=== PATIENT | male | born 1950 | race Caucasian/White ===

== ENCOUNTER 2018-11-10 14:44 | Emergency (ER) | payer MEDICARE, SELFPAY ==
[2018-11-10 14:45] VITALS: BP 160/93; PULSE 61; RESP 18; TEMP 35.8; O2SAT 98; BMI 27.3
--- NOTE | 2018-11-10 15:08 | VDLE_ITS ---
Reason For Study: RLE Pain RIGHT LEFT GSV is normal. CFV is compressible, spontaneous, phasic, CFV is compressible, spontaneous, phasic, competent, and demonstrates normal competent and demonstrates normal augmentation. augmentation. FV is compressible, spontaneous, phasic, competent and demonstrates normal augmentation. POP V is compressible, spontaneous, phasic, competent and demonstrates normal augmentation. T/P Trunk is compressible. PTV is compressible. RT PerV is compressible. Procedure Exam performed portable in ED. A preliminary report was called and/or faxed to ED. Interpretation Summary Deep veins of the right lower extremity are patent and compressible segmentally. There is no evidence of right lower extremity deep vein thrombosis. Valvular competence appears intact within the proximal deep venous system on the right . The right greater saphenous vein appears patent and compressible segmentally. Ordering Physician: Geetha Elizalde Performed By: Allyson BUENO, Nadia STARKS and Student
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
--- NOTE | 2018-11-10 15:50 | DCINST.ED_ITS ---
ED Disposition - Plan for ED Patient: Disposition: Home or Assisted Living Chief Complaint: Lower Extremity Injury Instructions: ED Knee Pain UKO, Possible Causes of Low Back or Leg Pain Referrals: [facility] Doctor,Out of [Primary Care Provider] - Lion Portillo MD [STAFF PHYSICIAN] - 1-2 Weeks Additional Instructions: Continue using ibuprofen or tylenol as needed for pain. [facility] to [facility]. You may also follow up with the orthopedic doctor on this paperwork if you continue to have severe knee pain with walking. If you have any worsening of your condition or any new concerning symptoms, please return immediately to the emergency department for another evaluation.
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
== END 2018-11-10 16:08 | disposition home or self-care (01) ==
PROVIDERS: Emergency Provider Emergency Medicine
DX: M79.604 Pain in right leg (principal); M54.5 Low back pain; I25.10 Atherosclerotic heart disease of native coronary artery without angina pectoris; I25.2 Old myocardial infarction; Z72.0 Tobacco use; Z95.5 Presence of coronary angioplasty implant and graft
CPT/HCPCS: 93971; 99282

== ENCOUNTER 2019-05-18 13:41 | Emergency (ER) | payer OTHER, MEDICARE, SELFPAY ==
[2019-05-18 13:42] VITALS: BP 112/70; PULSE 58; RESP 18; TEMP 36.6; O2SAT 98; BMI 25.9
--- NOTE | 2019-05-18 14:02 | ED.DCSUM_ITS ---
- ER Visit Summary Date of Service: 05/18/19 Chief Complaint: Left foot pain History of Present Illness: The patient is a 68 M who presents with left foot pain that began today while at work. Patient states a heavy object fell onto his left foot today at work. Patient states the pain improved somewhat with ice. Patient states the pain is constant and dull. Patient denies any paresthesias or weakness. Patient states his last tetanus was approximately 4 years ago. Patient denies any other injuries. Physical Examination: Vital signs are stable. Patient is afebrile. Patient is in no acute distress. Musculoskeletal exam reveals tenderness over the left great toe, second toe, and third toe. There is some edema and ecchymosis noted. There is no deformity noted. There is good range of motion in all digits. Capillary refill is less than 2 seconds in all digits. Sensation was intact to light touch in all digits. There is no tenderness over the ankle or lower leg. Test Results: X-rays of the left foot were obtained. There is a nondisplaced fracture of the tuft of the distal phalanx of the left first toe. Emergency Department Course and Treatment: Patient was given a postop shoe. Patient was instructed to ice and elevate the left foot. Patient was given restrictions for work. Patient was instructed to follow-up with his primary care physician or [facility] in 5 to 7 days. Patient understood and was agreeable with the plan. All questions were answered. Disposition: Discharge home Impression: Distal phalanx fracture left first toe This note was generated with [employer] dictation software. It may contain incorrect words, spelling, and punctuation that were not noted in review of the chart prior to signing ED Disposition - Plan for ED Patient: Disposition: Home or Assisted Living Diagnosis: Fracture of distal phalanx of great toe Instructions: FRACTURE, Toe [Closed] Referrals: [facility] [Primary Care Provider] - 5-7 Days [facility] [GROUP OF PHYSICIANS] - 5-7 Days
--- NOTE | 2019-05-18 14:05 | RAD_ITS ---
STUDY: X-RAY - LEFT FOOT CLINICAL: Male, 68 years old. Pain following injury of the toes. TECHNIQUE: 3 view(s) of the foot. COMPARISON: None. FINDINGS: There is a plantar calcaneal spur. Normal visualized subtalar, talonavicular, calcaneocuboid, tarsal and tarsometatarsal articulations. Normal metatarsi. Normal metatarsophalangeal joint of the great toe. Normal tibial and fibular sesamoid bones. Normal interphalangeal joint of the great toe. I suspect a nondisplaced fracture of the tuft of the distal phalanx of the great toe. Normal second through fifth metatarsophalangeal joints. Normal interphalangeal joints and phalanges of the lesser toes. Soft tissue swelling. RAD/Foot min 3 Views IMPRESSION: I suspect a nondisplaced fracture of the distal aspect of the distal phalanx of the great toe. Soft tissue swelling. Electronically Signed: Twin Lucero, at 14:30 EDT , Service support ,
--- NOTE | 2019-05-18 14:35 | ED.RN ---
coorprate care present for testing
[2019-05-18 15:48] VITALS: BP 161/74; PULSE 78; RESP 18; O2SAT 98
== END 2019-05-18 15:48 | disposition home or self-care (01) ==
PROVIDERS: Emergency Provider Emergency Medicine
DX: S92.425A Nondisplaced fracture of distal phalanx of left great toe, initial encounter for closed fracture (principal); W20.8XXA Other cause of strike by thrown, projected or falling object, initial encounter; Y93.89 Activity, other specified; Y92.89 Other specified places as the place of occurrence of the external cause; Y99.0 Civilian activity done for income or pay; I25.10 Atherosclerotic heart disease of native coronary artery without angina pectoris; I10 Essential (primary) hypertension; E78.00 Pure hypercholesterolemia, unspecified; F17.210 Nicotine dependence, cigarettes, uncomplicated
CPT/HCPCS: 73630; 99284

== ENCOUNTER 2022-11-19 13:35 | Emergency (ER) | payer MEDICARE, SELFPAY ==
[2022-11-19 13:37] VITALS: BP 112/71; PULSE 65; RESP 14; TEMP 36.6; O2SAT 95; BMI 27.4
[2022-11-19 13:51] VITALS: O2SAT 95
--- NOTE | 2022-11-19 14:02 | EDS_ITS ---
HPI HPI - Fall History of Present Illness Chief Complaint: Fall Narrative Narrative: 72-year-old male here for back pain after fall. Patient states symptoms are constant, severe worse with movement, worse palpation. There are no radiating components. Patient denies any saddle anesthesia, urinary tension, bowel or bladder incontinence, lower extremity weakness, fever or IV drug use, no recent spinal manipulation or surgery, no recent urinary catheterization. PFSH PFSH Home Medications aspirin 325 mg tablet 325 mg PO DAILY@0800 09/30/13 [History Last Taken Unknown] lisinopril 20 mg tablet 20 mg PO DAILY 09/30/13 [History Last Taken Unknown] metoprolol tartrate 25 mg tablet 37.5 mg PO BID 09/30/13 [History Last Taken Unknown] multivitamin with folic acid 400 mcg tablet (Thera) 1 tab PO DAILY 09/30/13 [History Last Taken Unknown] pravastatin 40 mg tablet 80 mg PO DAILY 09/30/13 [History Last Taken Unknown] Allergy/AdvReac Type Severity Reaction Status Date / Time No Known Allergies Allergy Verified 11/19/22 13:37 Social History Smoking Status: Current every day smoker tobacco type: cigarettes ROS ROS ED ROS Narrative Constitutional: Denies fever HEENT: Denies sore throat Neck: Denies neck pain Cardiovascular: Denies chest pain, syncope Respiratory: Denies shortness of breath GI: Denies nausea vomiting or abdominal pain : Denies changes in urinary habits Musculoskeletal: Endorses back pain Neurologic: Denies numbness weakness or loss of sensation Skin denies rash EXAM Physical Exam Narrative Exam Narrative: Nursing triage notes reviewed, Vital signs reviewed Constitutional: please see mdm HENT: MMM, no evidence of head trauma, no cephalhematoma, intraoral lesions, hemotympanum Eyes: Pupils equal round and reactive to light, Extraocular muscles intact Neck: No stridor, no JVD, full neck ROM, no step-offs deformities or TTP over the cervical spine Lungs: Clear to auscultation, No wheezing or rales. No increased work of breathing, no conversational dyspnea, no accessory muscle use, no nasal flaring. No respiratory distress noted Heart: Regular rate and rhythm, No murmurs, No rubs and No gallops, 2+ distal pulses (radial, femoral, posterior tibial) in all extremities Abdomen: Soft, there is no tenderness, rigidity, rebound or guarding, no obvious peritoneal signs, no palpable pulsatile abdominal masses, no auscultated abdominal bruit. No Herb sign, no Kiser Talley sign : No CVAT Back: TTP over right inferior rib margin, crepitus noted. no midline TTP, step- offs or deformities of thoracic or lumbar spine Extremities: No edema Neuro: Intact sensation L1-S1 dermatomal distributions. Intact 5/5 strength in hip flexion (T12-L3). Knee extension (L2-L4). Ankle dorsiflexion (L4-L5). Ankle plantar flexion (S1). Great toe extension (L5). 2+ patellar and Achilles DTRs. Skin: No rash or lesions noted Const Vital Signs: 11/19/22 13:37 11/19/22 13:51 Temperature 98 F Temperature Source Temporal Pulse Rate 65 Respiratory Rate 14 Respiratory Effort Normal Non-Labored Respiratory Depth Normal Respiratory Pattern Normal Blood Pressure 112/71 Blood Pressure Mean 84 Pulse Ox 95 95 Oxygen Delivery Method Room Air Room Air MDM MDM MDM Narrative Medical decision making narrative: Chief Complaint: Back pain after fall External records reviewed: No recent advanced imaging of the axial skeleton I considered: Fractures or dislocation of the spine, musculoskeletal injury of the spine. Factors affecting care: History of hypertension, hyperlipidemia Social determinants of health: Daily tobacco user History obtained from others: None Shared decision making: I will have a discussion with the patient and or visitors regarding risk/benefits of further testing or admission. They will be made aware of of the risk/benefits inherent in this decision they will be given the opportunity to voice understanding. Consults: Radiography Diagnostic Testing: Clinical Impression(s) from Imaging Studies Chest CT 11/19/22 14:32 IMPRESSION: Emphysematous changes and pulmonary scarring. No acute abnormality is seen. Electronically Signed: Twin Lucero MD at 15:15 EST , Discharge Plan Triage Chief Complaint: Fall ED Provider: Dangelo Hendrickson Dx/Rx/DC Orders Prescriptions: No Action aspirin 325 MG tablet 325 mg PO DAILY@0800 pravastatin 40 MG tablet 80 mg PO DAILY lisinopril 20 MG tablet 20 mg PO DAILY metoprolol tartrate 25 MG tablet 37.5 mg PO BID multivitamin with folic acid [Thera] 1 TABLET tablet 1 tab PO DAILY Primary Care Provider: [facility]: [facility] [Primary Care Provider] -
--- NOTE | 2022-11-19 14:32 | CT_ITS ---
STUDY: CT CHEST WITHOUT CONTRAST REASON FOR EXAM: Male, 72 years old. Right lower rib margin tenderness after fall RADIATION DOSAGE (If Supplied By Facility): CTDIvol = ( 15.03 ) mGy, DLP = ( 642.31 ) mGycm TECHNIQUE: Transaxial imaging was performed without the administration of intravenous contrast material. Multiplanar coronal and sagittal images were reformatted. Individualized dose optimization techniques were used for this CT. COMPARISON: No relevant priors. FINDINGS: CHEST Calcified granuloma in the anterior right lower lobe. Emphysematous changes. Subpleural blebs worse in the left lower lobe and right upper lobe. Bibasilar scarring. There is no demonstrated pleural abnormality. There are calcifications of the coronary arteries. Normal mediastinum. Calcified right hilar lymph nodes. Normal unenhanced pulmonary arteries. There is atherosclerotic calcification of the aortic arch with tortuosity and elongation of the aortic arch and descending thoracic aorta. There are multi-level degenerative changes of the thoracic spine. Calcified splenic granulomas. Tiny nonobstructive calculus in the upper pole of the left kidney. CT/Chest without Contrast IMPRESSION: Emphysematous changes and pulmonary scarring. No acute abnormality is seen. Electronically Signed: Twin Lucero MD at 15:15 EST ,
[2022-11-19] MEDS: oxyCODONE 5 MG Tablet PO (14:55)
== END 2022-11-19 15:56 | disposition home or self-care (01) ==
PROVIDERS: Emergency Provider Emergency Medicine; Visit Provider Emergency Medicine
DX: M54.9 Dorsalgia, unspecified (principal); E78.5 Hyperlipidemia, unspecified; F17.210 Nicotine dependence, cigarettes, uncomplicated; I10 Essential (primary) hypertension
CPT/HCPCS: 71250; 99283

== ENCOUNTER 2022-11-21 01:38 | Emergency (ER) | payer MEDICARE, SELFPAY ==
[2022-11-21 01:39] VITALS: BP 150/92; PULSE 74; RESP 18; TEMP 35.7; O2SAT 93; BMI 28.0
--- NOTE | 2022-11-21 01:54 | RAD_ITS ---
STUDY: X-RAY CHEST REASON FOR EXAM: Male, 72 years old. right tenth rib fracture TECHNIQUE: Single AP portable view of the chest. COMPARISON: CT chest November 19, 2022. Chest x-ray September 30, 2013. FINDINGS: No focal infiltrates or effusions. No pneumothorax. Emphysematous changes. Calcified right middle lobe lung nodule. Normal size heart. Normal mediastinum and pricila. Normal visualized pulmonary arteries. Normal visualized aortic arch and descending thoracic aorta. Normal visualized thoracic spine. Mildly displaced right 10th posterior rib fracture best appreciated on the recent CT scan. There is no demonstrated abnormality of the visualized soft tissue structures of the upper abdomen. RAD/Chest 1 View (Portable) IMPRESSION: No acute cardiopulmonary disease. Emphysematous changes. Old granulomatous disease. Right 10th posterior rib fracture visualized on the recent CT scan. Electronically Signed: Jostin Ramirez MD at 2:22 EST Reading Location ID and State: [id number] / , Service support ,
--- NOTE | 2022-11-21 01:55 | ED.VIS.BACK ---
HPI History of Present Illness Chief Complaint: Back Detail of Chief Complaint: Right posterior cheerier rib pain after a fall on the ice on Saturday. Informant: patient Onset/Context/Timing Onset: Days Context: Sudden Onset Injury: direct trauma and fall Timing: Continuous Quality: Sharp Location: Thoracic Current Severity: Moderate Maximum Severity: Moderate Worsened by: improves with Movement and Bending Relieved by: Remaining Still Narrative Narrative: 72-year-old male history of hypertension. Was seen on Saturday after he slipped and fell on the ice when he fell he hit his right posterior lower rib cage against a stair. Had a CAT scan done at that time it was initially read as chronic changes and negative. It was then over read and he has /10 posterior rib fracture. He came in tonight because he is having pain. Worse with movement. He thought he was having back spasms. When he initially fell he denies any head injury. He is on no blood thinners. Prior similar symptoms: No Recent Illness/Hospitalization: No [facility] Medical History Hypertension Myocardial infarct Home Medications aspirin 325 mg tablet 325 mg PO DAILY@0800 09/30/13 [History Last Taken Unknown] lisinopril 20 mg tablet 20 mg PO DAILY 09/30/13 [History Last Taken Unknown] metoprolol tartrate 25 mg tablet 37.5 mg PO BID 09/30/13 [History Last Taken Unknown] multivitamin with folic acid 400 mcg tablet (Thera) 1 tab PO DAILY 09/30/13 [History Last Taken Unknown] pravastatin 40 mg tablet 80 mg PO DAILY 09/30/13 [History Last Taken Unknown] Allergy/AdvReac Type Severity Reaction Status Date / Time No Known Allergies Allergy Verified 11/19/22 13:37 Surgical History History of coronary artery stent placement Social History Smoking Status: Current every day smoker tobacco type: cigarettes ROS ROS ED ROS Narrative Denies recent illness. Review of Systems ROS Unobtainable: Denies due to encephalopathy Constitutional Constitutional ED: Denies chills or fever(s) Eyes Eyes: Denies blurry vision ENT ENT ED: Denies ear pain Cardiovascular Cardiovascular: Denies chest pain Respiratory/Chest Respiratory/Chest: Denies dyspnea Gastrointestinal Gastrointestinal: Denies abdominal pain Genitourinary Genitourinary ED: Denies dysuria Musculoskeletal Musculoskeletal: Reports back pain; Denies arthralgias Integumentary Denies abscess or Abrasions Neurologic Neurologic: Denies headache(s) Psychiatric Psychiatric: Denies anxiety Endocrine Endocrinology: Denies cold intolerance Hematologic/Lymphatic Hematologic/Lymphatic: Denies easy bleeding or easy bruising Allergic/Immunologic Allergic/Immunologic ED: Denies mouth swelling or tongue swelling EXAM Physical Exam Narrative Exam Narrative: 9-year-old male vital signs stable afebrile. Pulse ox 93% on room air no signs hypoxia. Brought in by squad. No distress. Worse right posterior rib cage pain with movement. H EENT exam unremarkable atraumatic. Pupils round react light. C-spine and trachea nontender. Thoracic lumbar spine nontender. Right posterior lower rib cage tenderness. No subcu air, crepitance or bruising. Spines nontender. Lungs clear. Heart regular rhythm no murmur. Anterior chest wall nontender. Abdomen soft nontender. No signs of trauma. Pelvic girdle intact. Moving all 4 extremities. Neurologically is awake and alert with no focal motor deficits. Const Vital Signs: 11/21/22 01:39 Temperature 96.2 F L Temperature Source Temporal Pulse Rate 74 Respiratory Rate 18 Blood Pressure 150/92 H Blood Pressure Mean 111 Pulse Ox 93 Oxygen Delivery Method Room Air Positive well nourished and well developed; Negative for obese, cachectic, contractures or unkempt General Appearance ED: well developed and NAD; Negative for unkempt, cachectic, contractures or pallor Nutritional Appearance: Negative for cachectic or obese HEENT Reports moist mucous membranes; Denies dry mucous membranes Negative for trauma or tenderness Mouth ED: No dry mucous membranes Mouth: No dry mucous membranes Eyes PERRL and EOMs intact bilaterally General Eye ED: Negative for pale conjunctiva or scleral icterus Neck no lymphadenopathy, supple and no JVD General: Negative for tenderness Thyroid: Negative for other Resp normal respiratory effort and clear to auscultation bilaterally Effort and Inspection: pain with movement Auscultation: Negative for rales, rhonchi, wheezes or diminished lung sounds Cardio regular rate, regular rhythm, S1 normal heart sound, S2 normal heart sound and no murmurs Rhythm: Negative for abnormal rhythm GI normal to inspection, nondistended, normoactive bowel sounds, soft to palpation, non-tender, non-distended and no masses Inspection: Negative for abdominal distention Auscultation: Negative for hyperactive bowel sounds Palpation: Negative for tender or guarding Back/Spine normal to inspection and no thoracic nor lumbar tenderness Back/Spine Narrative: Tenderness right lower rib cage consistent with 1/10 rib fracture seen on prior CAT scan. No spine tenderness. Extremity normal to inspection and no clubbing, cyanosis or edema General Extremety ED: Negative for edema or tenderness General Extremity: Negative for edema Neuro oriented x3 Sensorium / Orientation: alert; Negative for confused, lethargic or stuporous Motor Exam: strength 5/5 throughout Psych mental status grossly normal Appearance: Negative for unkempt Attitude: No agitated Mood & Affect: Negative for depressed, sad or tearful Skin no rashes or lesions noted and no wounds General Skin Exam: Negative for jaundice or pallor Lesions: No lesion noted Rashes: No rashes noted Trauma: Negative for abrasion or puncture Wounds: Negative for wounds noted MDM MDM MDM Narrative Medical decision making narrative: 72-year-old male fell on Saturday. Was seen in the emergency department and CAT scan at that time. Has since been over read he has a right 10th posterior rib fracture. He will be given [place] for pain. I am obtaining a chest x-ray to rule out an effusion or pneumothorax clinically I do not think he has either. I did discuss with him his CAT scan results and how it was over read. Repeat exam patient is doing well at 3:30 AM. The [place] significantly helped his pain. He will be discharged home. Pillow to help brace his rib fracture. Ice. [place] for pain. 20 no refill. He was instructed not to drive if he is taking the [place]. Do not drink alcohol while using it. Radiography Diagnostic Testing: Clinical Impression(s) from Imaging Studies Chest X-Ray 11/21/22 01:54 IMPRESSION: No acute cardiopulmonary disease. Emphysematous changes. Old granulomatous disease. Right 10th posterior rib fracture visualized on the recent CT scan. Electronically Signed: Jostin Ramirez MD at 2:22 EST Reading Location ID and State: [id number] / , Service support , Chest x-ray, portable, single view, interpreted by myself and the radiologist shows no acute processes. No pneumothorax. No pleural effusion. I do not specifically see the fractured rib that they saw on the CAT scan. The radiologist also read the film and we agree. Discharge Plan Triage Chief Complaint: Back ED Provider: Keagan Rodriguez Dx/Rx/DC Orders Clinical Impression: Right rib fracture, Fall Instructions: ED Rib Fracture Prescriptions: No Action aspirin 325 MG tablet 325 mg PO DAILY@0800 pravastatin 40 MG tablet 80 mg PO DAILY lisinopril 20 MG tablet 20 mg PO DAILY metoprolol tartrate 25 MG tablet 37.5 mg PO BID multivitamin with folic acid [Thera] 1 TABLET tablet 1 tab PO DAILY [facility] Provider[facility] [Primary [facility] Provider] - As Needed Activity Restrictions/Additional Instructions: You have a fracture right 10th rib in the back. Ice to the area. Pillow to brace the area. It will take this 4 to 8 weeks to heal. The pain should improve over that time. [place] 1 pill every 4-6 hours for pain as needed. No drinking. No driving while using it. Make sure you are drinking plenty of fluids and fiber so you do not get constipated. Motrin also for pain and inflammation. Follow-up with your doctor as needed. Disposition Disposition: Home, Self Care
[2022-11-21] MEDS: HYDROcodone Bitartrate/Apap 5/325 Tablet PO (02:07)
[2022-11-21 03:39] VITALS: PULSE 86; RESP 18; O2SAT 100
== END 2022-11-21 03:40 | disposition home or self-care (01) ==
PROVIDERS: Emergency Provider Emergency Medicine; Visit Provider Emergency Medicine
DX: S22.31XA Fracture of one rib, right side, initial encounter for closed fracture (principal); I10 Essential (primary) hypertension; F17.210 Nicotine dependence, cigarettes, uncomplicated; W10.9XXA Fall (on) (from) unspecified stairs and steps, initial encounter
CPT/HCPCS: 71045; 99284

== ENCOUNTER 2024-02-08 13:14 | Emergency (ER) | payer MEDICARE, SELFPAY ==
[2024-02-08 13:16] VITALS: BP 148/85; PULSE 70; RESP 18; TEMP 35.9; O2SAT 97; BMI 26.2
--- NOTE | 2024-02-08 13:37 | CT_ITS ---
STUDY: CT Abdomen And Pelvis W/O Contrast Injection 02/08/2024 2:16 PM REASON FOR EXAM: Male, 73 years old. Abdominal pain left flank Individualized dose optimization techniques were used for this CT. COMPARISON: None. TECHNIQUE: CT Abdomen And Pelvis W/O Contrast Injection FINDINGS: There are atherosclerotic calcifications of visualized coronary arteries. The visualized portions of the heart are within normal limits. Healing right rib fractures. Normal liver. Normal gallbladder and extrahepatic biliary system. There are multiple benign calcified granulomata of the spleen. Normal pancreas. Normal bilateral adrenal glands. There are hypodensities in the right kidney. These are consistent for cysts. No follow up required. Non obstructive 2 mm left renal parenchymal stones. There are hypodensities in the left kidney. These are consistent for cysts. No follow up required. Normal visualized stomach. Normal small intestine. There are multiple colonic diverticula consistent with diverticulosis. The appendix is visualized and appears normal. There are calcifications of the abdominal aorta. This is consistent for atherosclerotic disease. There is NO abdominal aortic aneurysm. Vascular workup can be obtained based on clinical correlation. Normal inferior vena cava. Subcentimeter mesenteric lymph nodes. Urinary bladder wall has wall thickening. This can be related to a partially contractile state. However, a cystitis is not excluded. Urinalysis should be performed in an effort to exclude cystitis. There are prostatic calcifications. There is an umbilical hernia containing fat. There are diffuse degenerative changes of the visualized lumbar spine. There is bilateral neural foraminal stenosis at L4-5 and L5-S1. CT/Abdomen/Pelvis without Cont IMPRESSION: (NOT LISTED IN ORDER OF SIGNIFICANCE) Cystitis. There are multiple diverticuli of the colon. There is diverticulosis but no radiographic signs for diverticulitis. Other findings as above. Electronically Signed: Jacky Leach MD at 14:21 EDT ,
--- NOTE | 2024-02-08 13:38 | EX.ED.DYSGE1 ---
HPI <KINGA Ruiz - Last Filed: 02/08/24 15:53> History of Present Illness Chief Complaint: Flank Pain Narrative Narrative: 73-year-old male with past medical history of HTN, HLD states last night he had aching pain in his left flank after using a riding lawnmower. He thought it was a muscle ache. Today the pain became more intense and seems to wax and wane. He has noted urinary frequency but no dysuria or hematuria. He has no fever, chills, nausea or vomiting. Pain seems worse with movement. He took Aleve prior to arrival. He has no history of kidney stones. He has had a remote right inguinal hernia repair. PFSH <KINGA Ruiz - Last Filed: 02/08/24 15:53> [facility] Medical History Hypertension Myocardial infarct Home Medications aspirin 325 mg tablet 325 mg PO DAILY@0800 09/30/13 [History Last Taken Unknown] lisinopril 20 mg tablet 20 mg PO DAILY 09/30/13 [History Last Taken Unknown] metoprolol tartrate 25 mg tablet 37.5 mg PO BID 09/30/13 [History Last Taken Unknown] multivitamin with folic acid 400 mcg tablet (Thera) 1 tab PO DAILY 09/30/13 [History Last Taken Unknown] pravastatin 40 mg tablet 80 mg PO DAILY 09/30/13 [History Last Taken Unknown] hydrocodone-acetaminophen 5-325mg 5mg-325mg 1 tab PO Q4H PRN pain 6 days #20 tabs 11/21/22 [Rx Last Taken Unknown] Allergy/AdvReac Type Severity Reaction Status Date / Time No Known Allergies Allergy Verified 02/08/24 13:15 Surgical History History of coronary artery stent placement Social History Smoking Status: Current every day smoker tobacco type: cigarettes ROS <KINGA Ruiz - Last Filed: 02/08/24 15:53> ROS ED ROS Narrative Constitutional: Negative for fever, chills, malaise. CVS: Negative for chest pain. Respiratory: Negative for shortness of breath. GI: Negative for abdominal pain, nausea, vomiting, diarrhea, constipation, melena, hematochezia. : Positive for frequency. Negative for dysuria, hematuria. EXAM <KINGA Ruiz - Last Filed: 02/08/24 15:53> Physical Exam Narrative Exam Narrative: CONST: Patient sitting in no acute distress. EYES: Normal inspection. NECK: Normal inspection. RESP: No respiratory distress, CTAB. CVS: Regular rate and rhythm, no murmur, no gallop. ABD: Soft with mild tenderness in left lower quadrant, no guarding or rebound, nondistended, no hepatosplenomegaly. Back: Normal inspection, left CVA tenderness. SKIN: Color normal, no rash, warm, dry, intact. EXTREMITIES: Normal appearance, no pedal edema. NEURO: Alert and answering questions appropriately. PSYCH: Normal affect. Const Vital Signs: 02/08/24 13:16 02/08/24 15:00 02/08/24 15:48 Temperature 96.7 F L 97.8 F Temperature Source Temporal Pulse Rate 70 62 61 Respiratory Rate 18 16 16 Blood Pressure 148/85 H 157/72 H 152/74 H Blood Pressure Mean 106 100 100 Pulse Ox 97 97 97 Oxygen Delivery Method Room Air Room Air <Dr. Ronald Stoddard, DO - Last Filed: 02/08/24 13:51> Physical Exam Const Vital Signs: 02/08/24 13:16 02/08/24 15:00 02/08/24 15:48 Temperature 96.7 F L 97.8 F Temperature Source Temporal Pulse Rate 70 62 61 Respiratory Rate 18 16 16 Blood Pressure 148/85 H 157/72 H 152/74 H Blood Pressure Mean 106 100 100 Pulse Ox 97 97 97 Oxygen Delivery Method Room Air Room Air MDM <KINGA Ruiz - Last Filed: 02/08/24 15:53> [facility] MDM Narrative Medical decision making narrative: Patient has left flank pain x 2 days. He appears well and nontoxic. Afebrile and hemodynamically stable. He has mild left lower quadrant abdominal tenderness and left CVA tenderness. CBC and BMP are WNL. Urinalysis has no acute infection. CT scan shows no acute findings. He etiology of his pain is unclear. He feels somewhat better after Toradol and Lidoderm patch and I discussed a regimen of [id number] analgesia. If symptoms evolve or worsen he should be reassessed. He was comfortable with this plan and discharged in stable condition. Lab Data Attestation: I reviewed the patient's lab results. Labs: Laboratory Results - last 24 hr 02/08/24 02/08/24 13:30 14:30 WBC 6.7 RBC 5.00 Hgb 15.9 Hct 48.7 MCV 97.4 H MCH 31.8 MCHC 32.6 RDW Std Deviation 49.9 H RDW Coeff of [place] 13.9 Plt Count 185 MPV 11.0 Immature Gran % (Auto) 0.400 Neut % (Auto) 62.0 Lymph % (Auto) 24.3 [place] % (Auto) 10.6 H Eos % (Auto) 2.1 Baso % (Auto) 0.6 Absolute Neuts (auto) 4.2 Absolute Lymphs (auto) 1.63 Nucleated RBC % 0 Sodium 139 Potassium 4.4 Chloride 105 Carbon Dioxide 31.0 Anion Gap 3 L BUN 15 Creatinine 1.24 Estim Creat Clear Calc 54.64 Est GFR (MDRD) Af Amer 74 Est GFR (MDRD) Non-Af 61 BUN/Creatinine Ratio 12.1 Glucose 89 Calcium 8.8 Urine Color Yellow Urine Clarity Clear Urine pH 7.0 Ur Specific [place] 1.010 Urine Protein 15 H Urine Glucose (UA) Normal Urine Ketones Negative Urine Occult Blood 10 H Urine Nitrite Negative Urine Bilirubin Negative Urine Urobilinogen 1 H Ur Leukocyte Esterase 25 H Urine RBC 0 SEEN Urine WBC 5-10 SEEN Ur Squamous Epith Cells 0 SEEN Urine Bacteria 0 SEEN Urine Mucus 0 SEEN Radiography Diagnostic Testing: Clinical Impression(s) from Imaging Studies Abdomen/Pelvis CT 02/08/24 13:37 IMPRESSION: (NOT LISTED IN ORDER OF SIGNIFICANCE) Cystitis. There are multiple diverticuli of the colon. There is diverticulosis but no radiographic signs for diverticulitis. Other findings as above. Electronically Signed: Jacky Leach MD at 14:21 EDT , <Dr. Ronald Stoddard, DO - Last Filed: 02/08/24 13:51> [facility] Lab Data Labs: Laboratory Results - last 24 hr 02/08/24 02/08/24 13:30 14:30 WBC 6.7 RBC 5.00 Hgb 15.9 Hct 48.7 MCV 97.4 H MCH 31.8 MCHC 32.6 RDW Std Deviation 49.9 H RDW Coeff of [place] 13.9 Plt Count 185 MPV 11.0 Immature Gran % (Auto) 0.400 Neut % (Auto) 62.0 Lymph % (Auto) 24.3 [place] % (Auto) 10.6 H Eos % (Auto) 2.1 Baso % (Auto) 0.6 Absolute Neuts (auto) 4.2 Absolute Lymphs (auto) 1.63 Nucleated RBC % 0 Sodium 139 Potassium 4.4 Chloride 105 Carbon Dioxide 31.0 Anion Gap 3 L BUN 15 Creatinine 1.24 Estim Creat Clear Calc 54.64 Est GFR (MDRD) Af Amer 74 Est GFR (MDRD) Non-Af 61 BUN/Creatinine Ratio 12.1 Glucose 89 Calcium 8.8 Urine Color Yellow Urine Clarity Clear Urine pH 7.0 Ur Specific [place] 1.010 Urine Protein 15 H Urine Glucose (UA) Normal Urine Ketones Negative Urine Occult Blood 10 H Urine Nitrite Negative Urine Bilirubin Negative Urine Urobilinogen 1 H Ur Leukocyte Esterase 25 H Urine RBC 0 SEEN Urine WBC 5-10 SEEN Ur Squamous Epith Cells 0 SEEN Urine Bacteria 0 SEEN Urine Mucus 0 SEEN Radiography Diagnostic Testing: Clinical Impression(s) from Imaging Studies Abdomen/Pelvis CT 02/08/24 13:37 IMPRESSION: (NOT LISTED IN ORDER OF SIGNIFICANCE) Cystitis. There are multiple diverticuli of the colon. There is diverticulosis but no radiographic signs for diverticulitis. Other findings as above. Electronically Signed: Jacky Leach MD at 14:21 EDT Reading Location ID and State: [facility] / [place] , Service support , Treatment and Re-Evaluation :: I have personally performed a face to face assessment of the patient and have reviewed the ELOY Note. I performed a substantive portion of the visit including all aspects of the following. My kam findings include: History: Patient presents with left flank pain that began yesterday. Patient states it became worse today. Patient describes it as sharp at times and throbbing at times. Patient states it also feels like it is burning at times. Patient states it is over the left flank area and radiates into the left lower abdomen. Patient denies any fevers or chills. Patient denies any dysuria or hematuria. Patient denies any nausea or vomiting. Exam: Vital signs are stable. Patient is afebrile. Patient is in no acute distress. Oral mucosa is pink and moist. Neck is supple. Trachea is midline. There is no JVD. Heart was regular rate and rhythm. Lungs are clear and equal bilaterally. Abdomen is soft. Bowel sounds are normal. There is some mild left lower quadrant tenderness. There is no rebound or guarding noted. There is mild left CVA tenderness. Cranial nerves II through XII are intact. There are no focal motor or sensory deficits noted. Medical Decision Making: Differential diagnosis includes left ureteral calculus, pyelonephritis, diverticulitis, and gastroenteritis. CBC will be obtained to assess for leukocytosis and anemia. Basic metabolic profile will be obtained to assess for electrolyte abnormality and renal function. Urinalysis will be obtained to assess for urinary tract infection and hematuria. CT scan of the abdomen pelvis will be obtained to assess for ureteral calculus and diverticulitis. Patient was given IV fluids and Toradol. Discharge Plan Triage Chief Complaint: Flank Pain ED Midlevel Provider: Geetha Escalona ED Provider: Ronald Stoddard Dx/Rx/DC Orders Clinical Impression: Left flank pain Instructions: ED Flank Pain, Uncertain Cause Prescriptions: No Action aspirin 325 MG tablet 325 mg PO DAILY@0800 pravastatin 40 MG tablet 80 mg PO DAILY lisinopril 20 MG tablet 20 mg PO DAILY metoprolol tartrate 25 MG tablet 37.5 mg PO BID multivitamin with folic acid [Thera] 1 TABLET tablet 1 tab PO DAILY hydrocodone-acetaminophen 5-325 mg tablet 1 tab PO Q4H PRN (Reason: pain) 6 Days Qty: 20 0RF [facility] [Primary Care Provider] - Activity Restrictions/Additional Instructions: Today your tests and CAT scan look normal with no clear cause found of your pain. I recommend alternating Tylenol and Motrin and following up with your primary care doctor. Return if symptoms worsen or significantly change. Disposition Disposition: Home, Self Care
[2024-02-08] MEDS: Ketorolac 15 MG/ML Vial IV (13:48)
[2024-02-08] MEDS: 0.9% Normal Saline (1000mL) 1,000 ML 999 ML IV (13:48)
[2024-02-08 14:13] LABS: Absolute Lymphocyte Count 1.63 X10^3/uL (0.83-4.51); Absolute Neutrophil Count 4.2 X10^3/uL (2.0-7.7); Basophil# 0.04 X10^3/uL; Basophil% 0.6 % (0-1); Eosinophil# 0.14 X10^3/uL; Eosinophils% 2.1 % (0-5); Hematocrit 48.7 % (40-54); Hemoglobin 15.9 g/dL (13.0-16.5); Lymphocyte # 1.63 X10^3/ul (0.83-4.51); Lymphocyte % 24.3 % (19-41); Mean Corp Hgb Conc 32.6 g/dL (32-36); Mean Corpuscular Hgb 31.8 pg (27.0-32.0); Mean Corpuscular Volume 97.4 fL (80-94); Monocyte# 0.71 X10^3/uL; Monocyte% 10.6 % (0-10); NRBC Flagged by Analyzer 0 % (0-5); Neutrophil # 4.16 X10^3/uL (2.7-7.7); Platelet Count 185 K/mm3 (150-450); RBC Distribution Width CV 13.9 % (11.6-14.6); RBC Distribution Width SD 49.9 fl (35.1-43.9); White Blood Count 6.7 K/mm3 (4.4-11.0)
[2024-02-08 14:21] LABS: Anion Gap 3 (5-15); BUN 15 mg/dL (7-18); BUN/Creat Ratio 12.1 RATIO (10-20); Calcium,Total 8.8 mg/dL (8.5-10.1); Chloride 105 mmol/L (98-107); Creatinine, Serum 1.24 mg/dL (0.70-1.30); EST Glomerular Filtration Rate 61 mL/min (>60); Est Glom Filt Rate - Afr Amer 74 mL/min (>60); Estimated Creatinine Clearance 54.64 ml/min; Glucose 89 mg/dL (74-106); Potassium 4.4 mmol/L (3.5-5.1); Sodium Level 139 mmol/L (136-145)
[2024-02-08 14:36] LABS: Bacteria 0 SEEN /hpf (None Seen); Mucous, Urine 0 SEEN /hpf (<or=2+); Red Blood Cells-Urine 0 SEEN /hpf (0-5); Squamous Epithelial Cells - UA 0 SEEN /hpf (0-5)
[2024-02-08 15:00] VITALS: BP 157/72; PULSE 62; RESP 16; O2SAT 97
[2024-02-08 15:00] LABS: Color, Urine Yellow (Yellow); Glucose, Dipstick Normal (Normal); Ketone-Dipstick Negative (Negative); Leukocyte Esterase-Dipstick 25 /ul (Negative); Nitrite-Dipstick Negative (Negative); Occult Blood-Urine 10 /ul (Negative); Protein-Dipstick 15 mg/dl (Negative); Urine Bilirubin Dipstick Negative (Negative); Urine Clarity Clear (Clear); Urine Urobilinogen 1 mg/dl (Normal)
[2024-02-08 15:35] LABS: White Blood Cells 5-10 SEEN /hpf (0-5)
[2024-02-08 15:48] VITALS: BP 152/74; PULSE 61; RESP 16; TEMP 36.6; O2SAT 97
[2024-02-08] MEDS: Lidocaine 5% Patch 1 PATCH TOPICAL (16:00)
== END 2024-02-08 16:57 | disposition home or self-care (01) ==
PROVIDERS: Physician Assistant; Emergency Provider Emergency Medicine; Visit Provider Emergency Medicine
DX: R10.814 Left lower quadrant abdominal tenderness (principal); E78.5 Hyperlipidemia, unspecified; I10 Essential (primary) hypertension; F17.210 Nicotine dependence, cigarettes, uncomplicated; Z79.899 Other long term (current) drug therapy; I25.2 Old myocardial infarction; Z79.82 Long term (current) use of aspirin; Z95.5 Presence of coronary angioplasty implant and graft; X58.XXXA Exposure to other specified factors, initial encounter; Y93.89 Activity, other specified
CPT/HCPCS: 74176; 80048; 81001; 85025; 96361; 96374; 99283; J7030

== ENCOUNTER 2025-05-03 20:21 | Emergency (ER) | payer MEDICARE, SELFPAY ==
[2025-05-03] VITALS (7 sets, daily range): BP systolic 115–162; BP diastolic 83–94; PULSE 64–71; RESP 17–24; TEMP 37; O2SAT 93–100; BMI 27.4
--- NOTE | 2025-05-03 20:47 | EKG12_ITS ---
Test Reason : CP Blood Pressure : */* mmHG Vent. Rate : 66 BPM Atrial Rate : 66 BPM P-R Int : 132 ms QRS Dur : 130 ms QT Int : 430 ms P-R-T Axes : 63 95 40 degrees QTcB Int : 450 ms Sinus rhythm with Premature supraventricular complexes Right bundle branch block Abnormal ECG Confirmed by Lobito Delgadillo ([id number]), web content editor ALEKSANDRA GALLAGHER ([id number]) on 05/05/2025 11:21:35 AM Referred By: DARVIN Confirmed By: Lobito Delgadillo
[2025-05-03 21:01] LABS: Hematocrit 44.4 % (40-54); Hemoglobin 15.1 g/dL (13.0-16.5); Immature Granulocytes Count 0.030 X10^3/uL (0.0-0.0); Mean Corp Hgb Conc 34.0 g/dL (32-36); Mean Corpuscular Volume 96.1 fL (80-94); Mean Platelet Vol. 10.7 fl (6.2-12.0); NRBC Flagged by Analyzer 0 % (0-5); Platelet Count 194 K/mm3 (150-450); RBC Distribution Width CV 14.1 % (11.6-14.6); RBC Distribution Width SD 49.6 fl (35.1-43.9); Red Blood Count 4.62 M/mm3 (4.6-6.2); White Blood Count 8.6 K/mm3 (4.4-11.0)
--- NOTE | 2025-05-03 21:10 | RAD_ITS ---
PROCEDURE: CHEST 1 VIEW (PORTABLE) 05/03/2025 REASON FOR EXAM: CHEST PAIN TECHNIQUE: Frontal view of the chest. COMPARISON: 11/21/2022 FINDINGS: Scattered calcified granulomas. Diffuse reticular opacities may reflect atypical pneumonia, mild pulmonary edema, and/or underlying chronic lung disease. Right lower lobe opacity is not excluded. No pleural effusion or pneumothorax. Cardiac silhouette is unchanged. Calcified aortic arch. RAD/Chest 1 View (Portable) IMPRESSION: Diffuse reticular opacities may reflect atypical pneumonia, mild pulmonary vinicius a, and/or underlying chronic lung disease. Right lower lobe opacity is not excluded. Reading Location: [id number]
--- NOTE | 2025-05-03 21:17 | ED.VIS.CHEST ---
HPI History of Present Illness Chief Complaint: Chest Pain Narrative Narrative: 74-year-old male past medical history of hypertension and coronary artery disease had stenting of his coronary arteries in 2003 presents with chest pain and tightness that he experienced approximately 2 hours ago. It was around 7 PM when he had just eaten dinner and was sitting trying to rest. He felt chest tightness for at least an hour. He called the side and around 8:20 PM, who brought him to the emergency department. He states he may have been slightly nauseated but no vomiting, no shortness of breath but he was mildly diaphoretic. He continues to smoke cigarettes, approximately a pack a day. He denies any exacerbating or alleviating factors. No leg swelling. He is currently pain-free. [facility] Medical History Myocardial infarct Hypertension Home Medications ?Medication ?Instructions ?Recorded ?Last Taken ?Type aspirin 325 mg tablet 325 mg PO DAILY@0800 09/30/13 Unknown History lisinopril 20 mg tablet 20 mg PO DAILY 09/30/13 Unknown History metoprolol tartrate 25 mg tablet 37.5 mg PO BID 09/30/13 Unknown History multivitamin with folic acid 400 1 tab PO DAILY 09/30/13 Unknown History mcg tablet (Thera) pravastatin 40 mg tablet 80 mg PO DAILY 09/30/13 Unknown History azithromycin 250 mg tablet See Rx Instructions PO .COMPLEX #6 05/03/25 Unknown Rx tabs Allergy/AdvReac Type Severity Reaction Status Date / Time No Known Allergies Allergy Verified 05/03/25 20:23 Surgical History History of coronary artery stent placement Social History Smoking Status: Current every day smoker tobacco type: cigarettes ROS ROS ED ROS Narrative Review of systems positive for chest tightness and diaphoresis. Perhaps slight nausea but no vomiting, no shortness of breath. No fevers or chills. Chronic cough in the mornings. No leg swelling. No exacerbating or alleviating factors. Currently pain-free. EXAM Physical Exam Narrative Exam Narrative: Afebrile. Vital signs noted. Nontoxic-appearing. Cardiovascular examination reveals regular rate and rhythm. Lungs are clear to auscultation bilaterally with rare expiratory wheeze, moving a good amount of air. Abdomen soft and nontender with positive bowel sounds, no guarding or rebound. Neurological examination nonfocal, nonlateralizing. No pedal edema bilaterally. Const Vital Signs: 05/03/25 20:21 05/03/25 20:22 05/03/25 20:47 Temperature 98.6 F Temperature Source Oral Pulse Rate 70 Respiratory Rate 18 Respiratory Effort Short of Breath Respiratory Pattern Blood Pressure 115/83 H Blood Pressure Mean 93 Pulse Ox 100 93 Oxygen Delivery Method Room Air 05/03/25 21:21 05/03/25 22:00 05/03/25 23:00 Temperature Temperature Source Pulse Rate 71 66 64 Respiratory Rate 22 H 24 H 17 Respiratory Effort Respiratory Pattern Blood Pressure 162/88 H 154/90 H 162/94 H Blood Pressure Mean 112 111 116 Pulse Ox 93 93 95 Oxygen Delivery Method Room Air Room Air Room Air 05/03/25 23:02 Temperature Temperature Source Pulse Rate 64 Respiratory Rate 20 H Respiratory Effort Respiratory Pattern Normal Blood Pressure Blood Pressure Mean Pulse Ox Oxygen Delivery Method MDM MDM MDM Narrative Medical decision making narrative: The differential diagnosis includes but not limited to ACS versus COPD exacerbation versus pneumonia versus pneumothorax. I have low suspicion for pulmonary embolism because history and physical does not support this. EKG obtained interpreted by myself independently as normal sinus rhythm at 66 bpm with premature supraventricular complexes. There is a right bundle branch block present. No prior EKG with which to compare. I reviewed his laboratory work and he has normal white count of 8.6 with hemoglobin normal at 15.1, hematocrit 44.4, platelet count 194. BMP remarkable for creatinine of 1.32. Glucose 111. Initial high-sensitivity troponin 12. Chest x-ray interpreted by myself shows diffuse reticular opacities which could be atypical pneumonia versus interstitial edema. I added a BNP and its normal at 272. I do think he is in heart failure. I reviewed the radiology report which confirms my independent interpretation. I do feel in treating an atypical pneumonia that he should be given a DuoNeb aerosolized treatment. He states he has multiple inhalers at home. Smoking cessation was discussed. I will write him a prescription for azithromycin to take over the next 5 days. As long as his repeat troponin shows a acceptable delta troponin I feel he can be discharged to follow-up and that his chest tightness may have been more of a COPD type exacerbation. Repeat troponin returns at 14 for an acceptable delta troponin of 2. At this point in time, he remains pain-free. He will follow-up with his primary care provider at the [place]. Return instructions to the emergency department were reviewed. Disposition is discharged home in stable condition. History & Record Review Discussion w/independent historian: Patient Additional record(s) reviewed:: Prior ED visit and Prior labs Lab Data Attestation: I reviewed the patient's lab results. Labs: Laboratory Results - last 24 hr 05/03/25 05/03/25 20:38 22:55 WBC 8.6 RBC 4.62 Hgb 15.1 Hct 44.4 MCV 96.1 H MCH 32.7 H MCHC 34.0 RDW Std Deviation 49.6 H RDW Coeff of [place] 14.1 Plt Count 194 MPV 10.7 Immature Gran % (Auto) 0.400 Neut % (Auto) 52.1 Lymph % (Auto) 32.9 [place] % (Auto) 11.4 H Eos % (Auto) 2.7 Baso % (Auto) 0.5 Absolute Neuts (auto) 4.5 Absolute Lymphs (auto) 2.82 Nucleated RBC % 0 Sodium 140 Potassium 4.1 Chloride 104 Carbon Dioxide 24.2 Anion Gap 12 BUN 19 Creatinine 1.32 H Estim Creat Clear Calc 50.59 Est GFR (MDRD) Non-Af 57 L BUN/Creatinine Ratio 14.1 Glucose 111 H Calcium 9.1 Troponin T High Sens 12 Troponin T Hi Sens 2 Hr 14 NT pro BNP II 272 Radiography Diagnostic Testing: Clinical Impression(s) from Imaging Studies Chest X-Ray 05/03/25 21:10 IMPRESSION: Diffuse reticular opacities may reflect atypical pneumonia, mild pulmonary edema, and/or underlying chronic lung disease. Right lower lobe opacity is not excluded. Reading Location: [id number] Discharge Plan Triage Chief Complaint: Chest Pain ED Provider: Gigi Leal Dx/Rx/DC Orders Clinical Impression: Chest tightness, Atypical pneumonia, Smoker Instructions: Planning to Quit Smoking, ED Chest Pain, Uncertain Cause, ED Pneumonia (Adult) Prescriptions: New azithromycin 250 mg tablet See Rx Instructions .ROUTE .COMPLEX Qty: 6 0RF Rx Instructions: For 250 mg dose pack: take 500 mg today (day 1), then 250 mg for 4 days (days 2-5) No Action aspirin 325 MG tablet 325 mg PO DAILY@0800 pravastatin 40 MG tablet 80 mg PO DAILY lisinopril 20 MG tablet 20 mg PO DAILY metoprolol tartrate 25 MG tablet 37.5 mg PO BID multivitamin with folic acid [Thera] 1 TABLET tablet 1 tab PO DAILY [facility] [facility]errals[facility] [Primary Care Provider] - 3-5 Days if not improving Activity Restrictions/Additional Instructions: Stop smoking. Use an albuterol inhaler or nebulizer treatment every 4-6 hours as needed for shortness of breath. Return with increased chest tightness, new or worsening symptoms. Antibiotics as directed. [facility] 5 days if not improving. Print Language: Bruneian Disposition Disposition: Home, Self Care
[2025-05-03 21:39] LABS: Anion Gap 12 (5-15); BUN 19 mg/dL (4-19); BUN/Creat Ratio 14.1 RATIO (10-20); Calcium,Total 9.1 mg/dL (7.6-11.0); Carbon Dioxide 24.2 mmol/L (21.0-32.0); Chloride 104 mmol/L (98-108); Estimated Creatinine Clearance 50.59 ml/min (50-250); Glucose 111 mg/dL (70-99); Potassium 4.1 mmol/L (3.3-5.1); Troponin T High Sensitivity 12 ng/L (<=22)
[2025-05-03 23:02] LABS: Pro- Brain NATRIURETIC PEPTIDE 272 pg/mL (<=900)
[2025-05-03 23:23] LABS: Troponin T High Sens 2 HR 14 ng/L (<=22)
== END 2025-05-03 23:35 | disposition home or self-care (01) ==
PROVIDERS: Emergency Provider Emergency Medicine; Visit Provider Emergency Medicine
DX: R07.89 Other chest pain (principal); J18.9 Pneumonia, unspecified organism; F17.210 Nicotine dependence, cigarettes, uncomplicated; I25.10 Atherosclerotic heart disease of native coronary artery without angina pectoris; I45.10 Unspecified right bundle-branch block; Z95.5 Presence of coronary angioplasty implant and graft; I25.2 Old myocardial infarction; I10 Essential (primary) hypertension; Z79.82 Long term (current) use of aspirin; Z79.899 Other long term (current) drug therapy; R11.0 Nausea; R61 Generalized hyperhidrosis
CPT/HCPCS: 71045; 80048; 83880; 84484; 85025; 93005; 94640; 99284; A4216

== ENCOUNTER 2025-09-14 10:27 | Day surgery (SDC) | payer OTHER, SELFPAY ==
--- NOTE | 2025-09-08 16:41 | PAT.ANE_ITS ---
Pre-Assessment Diagnosis/Proposed Procedure Planned Operative Procedure(s): INSERTION VASCULAR PORT RIGHT POSS LEFT Anesthesia History Anesthesia History - analysis consultant: Anesthesia History - analysis consultant Hx Hospitalization No 09/08/25 13:46 Any Problems With Anesthesia No 09/08/25 13:46 Cholinesterase deficiency No 09/08/25 13:46 You/Your Family Experience No 09/08/25 13:46 fever (hyperthermia) with Relationship Recent Exposure to Contagious Disease Does patient have nerve No 09/08/25 13:46 stimulator Patient instructed to have device shut off --Does patient have Pacemaker or ICD? When Was Last Pacemaker Check QUESTION #4 FULL TEXT: You/Your Family Experience fever (hyperthermia) with Anesthesia Last Oral Intake Last Oral intake: Last Oral Intake NPO since Meds taken in AM with sips of water? Meds patient instructed to take am of surgery PONV PONV - analysis consultant: PONV - analysis consultant Female No 09/08/25 13:46 HX of Motion Sickness No 09/08/25 13:46 HX of N/V After Surgery No 09/08/25 13:46 Non-Smoker Yes 09/08/25 13:46 Duration of Surgery greater No 09/08/25 13:46 than 60 minutes Number of Risk Factors 1 09/08/25 13:46 PONV Score Low Risk 09/08/25 13:46 Height & Weight Height & Weight: Anesthesia: Height & Weight Height 5 ft 9 in 09/07/25 10:12 Respiratory Assessment Respiratory Assessment - analysis consultant: Respiratory Tract Infection Hx - analysis consultant Hx Respiratory Tract Infection No: PNEUMONIA 04/202509/08/25 13:46 STOP Sleep Apnea STOP Sleep Apnea - analysis consultant: STOP Sleep Apnea - analysis consultant Hx Hypertension Yes: CONTROLLED WITH MED 09/08/25 13:46 Hx Sleep Apnea No 09/08/25 13:46 CPAP BIPAP Do you snore loudly (louder Yes 09/08/25 13:46 than talking or can be heard Do you often feel tired/ No 09/08/25 13:46 fatigued/ sleepy during daytime? Has anyone observed you stop No 09/08/25 13:46 breathing during sleep? STOP Results Positive 09/08/25 13:46 QUESTION #5 FULL TEXT : Do you snore loudly (louder than talking or can be heard through closed doors)? 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 Specify any problems Hx of Preganancy in last 3 N/A 09/08/25 13:46 Months Nurse Filling Out Transfusion DSCHRIBER 09/08/25 13:46 & Questions: Date: 09/08/25 09/08/25 13:46 Time: 13:48 09/08/25 13:46 Patient unable to answer at this time (ie. 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 - analysis consultant: /Reproductive Hx- analysis consultant Hx Now No 09/08/25 13:46 Gestational Age (in weeks): EDC: Hx Hx Para Hx Section SAB No 09/08/25 13:46 Does the father of the baby or his family experience fever w Father of the baby Malignant Hypertension history comment [facility] Medical History (Updated 09/08/25 @ 13:55 by Louisa Pizano) Wears glasses Wears dentures Anxiety Prostate disease Cancer High cholesterol Restless legs Injury of back Former smoker COPD (chronic obstructive pulmonary disease) Leg cramps History of pain when walking History of stress test Meningioma Regional lymph node metastasis present BPH (benign prostatic hyperplasia) Facial paresthesia Coronary atherosclerosis Eruptive melanocytic nevus Small cell lung cancer Myocardial infarct Hypertension Home Medications ?Medication ?Instructions ?Recorded ?Last Taken ?Type lisinopril 20 mg tablet 20 mg PO DAILY 09/30/13 Unkn own History metoprolol tartrate 25 mg tablet 37.5 mg PO BID Unknown History multivitamin with folic acid 400 1 tab PO DAILY Unknown History mcg tablet (Thera) albuterol sulfate 90 mcg/actuation 1 inh inhalation Q4 -6H PRN 09/03/25 Unknown History breath activated powder inhaler shortness of breath or wheezing atorvastatin 10 mg tablet (Lipitor) 10 mg PO QDAY 08/21 02/12 Unknown History budesonide 160 mcg-glycopyr 9 2 inh inhalation BID Unknown History mcg-formot 4.8 mcg/actuation HFA inhaler tamsulosin 0.4 mg capsule 0.4 mg PO QHS 09/03/25 Unkno wn History aspirin 81 mg tablet,delayed 81 mg PO DAILY 09/08/25 U nknown History release (Adult Aspirin Regimen) Allergy/AdvReac Type Severity Reaction Status Date / Time simvastatin AdvReac Unknown muscle pain Verified 09/08/25 13:42 Family History (Updated 09/07/25 @ 10:11 by Jennifer Giles) Brother Cancer Other Kidney disease Surgical History (Updated 09/08/25 @ 13:55 by Louisa Pizano) Hx of colonoscopy Hx of hernia repair History of coronary artery stent placement Social History (Updated 09/07/25 @ 10:11 by Jennifer Giles) Smoking Status: Former smoker Tobacco: How many years used: 50 alcohol intake: current alcohol intake frequency: holidays/special occasions only Alcohol type: beer and wine substance use type: does not use Audit: Pertinent Findings Pertinent Findings EKG Perinent findings: 05/03/2025. Sinus rhythm with premature supraventricular complexes. Right bundle branch block. Additional pertinent findings: 09/07/2025. Platelet count is 97,000. This is a significant drop from April 2025. Please have the patient repeat his platelet count prior to surgery. Recommendation Anesthesia Recommendation Anesthesia recommendation: F/U recommended (09/07/2025. Platelet count is 97,000. This is a significant drop from April 2025. Please have the patient repeat his platelet count prior to surgery.)
[2025-09-09 11:07] LABS: Platelet Count 102 K/mm3 (150-450)
--- NOTE | 2025-09-09 13:27 | PAT.ANE_ITS ---
Pre-Assessment Diagnosis/Proposed Procedure Planned Operative Procedure(s): INSERTION VASCULAR PORT RIGHT POSS LEFT Anesthesia History Anesthesia History - senior technical manager: Anesthesia History - senior technical manager Hx Hospitalization No 09/08/25 13:46 Any Problems With Anesthesia No 09/08/25 13:46 Cholinesterase deficiency No 09/08/25 13:46 You/Your Family Experience No 09/08/25 13:46 fever (hyperthermia) with Relationship Recent Exposure to Contagious Disease Does patient have nerve No 09/08/25 13:46 stimulator Patient instructed to have device shut off --Does patient have Pacemaker or ICD? When Was Last Pacemaker Check QUESTION #4 FULL TEXT: You/Your Family Experience fever (hyperthermia) with Anesthesia Last Oral Intake Last Oral intake: Last Oral Intake NPO since Meds taken in AM with sips of water? Meds patient instructed to take am of surgery PONV PONV - senior technical manager: PONV - senior technical manager Female No 09/08/25 13:46 HX of Motion Sickness No 09/08/25 13:46 HX of N/V After Surgery No 09/08/25 13:46 Non-Smoker Yes 09/08/25 13:46 Duration of Surgery greater No 09/08/25 13:46 than 60 minutes Number of Risk Factors 1 09/08/25 13:46 PONV Score Low Risk 09/08/25 13:46 Height & Weight Height & Weight: Anesthesia: Height & Weight Height 5 ft 9 in 09/07/25 10:12 Respiratory Assessment Respiratory Assessment - senior technical manager: Respiratory Tract Infection Hx - senior technical manager Hx Respiratory Tract Infection No: PNEUMONIA 04/202509/08/25 13:46 STOP Sleep Apnea STOP Sleep Apnea - senior technical manager: STOP Sleep Apnea - senior technical manager Hx Hypertension Yes: CONTROLLED WITH MED 09/08/25 13:46 Hx Sleep Apnea No 09/08/25 13:46 CPAP BIPAP Do you snore loudly (louder Yes 09/08/25 13:46 than talking or can be heard Do you often feel tired/ No 09/08/25 13:46 fatigued/ sleepy during daytime? Has anyone observed you stop No 09/08/25 13:46 breathing during sleep? STOP Results Positive 09/08/25 13:46 QUESTION #5 FULL TEXT : Do you snore loudly (louder than talking or can be heard through closed doors)? 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 Specify any problems Hx of Preganancy in last 3 N/A 09/08/25 13:46 Months Nurse Filling Out Transfusion DSCHRIBER 09/08/25 13:46 & Questions: Date: 09/08/25 09/08/25 13:46 Time: 13:48 09/08/25 13:46 Patient unable to answer at this time (ie. 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 - senior technical manager: /Reproductive Hx- senior technical manager Hx Now No 09/08/25 13:46 Gestational Age (in weeks): EDC: Hx Hx Para Hx Section SAB No 09/08/25 13:46 Does the father of the baby or his family experience fever w Father of the baby Malignant Hypertension history comment [facility] Medical History (Updated 09/09/25 @ 09:12 by Eli Agrawal) Wears glasses Wears dentures Anxiety Prostate disease Cancer High cholesterol Restless legs Injury of back Former smoker COPD (chronic obstructive pulmonary disease) Leg cramps History of pain when walking History of stress test Meningioma Regional lymph node metastasis present BPH (benign prostatic hyperplasia) Facial paresthesia Coronary atherosclerosis Eruptive melanocytic nevus Small cell lung cancer Myocardial infarct Hypertension Home Medications ?Medication ?Instructions ?Recorded ?Last Taken ?Type lisinopril 20 mg tablet 20 mg PO DAILY 09/30/13 Unkn own History metoprolol tartrate 25 mg tablet 37.5 mg PO BID Unknown History multivitamin with folic acid 400 1 tab PO DAILY Unknown History mcg tablet (Thera) albuterol sulfate 90 mcg/actuation 1 inh inhalation Q4 -6H PRN 09/03/25 Unknown History breath activated powder inhaler shortness of breath or wheezing atorvastatin 10 mg tablet (Lipitor) 10 mg PO QDAY 08/21 02/12 Unknown History budesonide 160 mcg-glycopyr 9 2 inh inhalation BID Unknown History mcg-formot 4.8 mcg/actuation HFA inhaler tamsulosin 0.4 mg capsule 0.4 mg PO QHS 09/03/25 Unkno wn History aspirin 81 mg tablet,delayed 81 mg PO DAILY 09/08/25 U nknown History release (Adult Aspirin Regimen) Allergy/AdvReac Type Severity Reaction Status Date / Time simvastatin AdvReac Unknown muscle pain Verified 09/09/25 09:17 Family History (Updated 09/07/25 @ 10:11 by Jennifer Giles) Brother Cancer Other Kidney disease Surgical History Hx of colonoscopy Hx of hernia repair History of coronary artery stent placement Social History Smoking Status: Former smoker Tobacco: How many years used: 50 alcohol intake: current alcohol intake frequency: holidays/special occasions only Alcohol type: beer and wine substance use type: does not use Audit: Pertinent Findings HISTORY of Pertinent Findings History of Pertinent Findings: EKG Pertinent Findings EKG Perinent findings 05/03/2025. Sinus rhythm 09/08/25 16:44 with premature supraventricular complexes. Right bundle branch block. Additional Pertinent Findings Additional pertinent findings 09/07/2025. Platelet count 09/08/25 16:44 is 97,000. This is a significant drop from April 2025. Please have the patient repeat his platelet count prior to surgery. Pertinent Findings Additional pertinent findings: Repeat platelet count 09/09/2025 is 102,000. Recommendation Anesthesia Recommendation Anesthesia recommendation: OPTIMIZED for anesthesia
[2025-09-14] VITALS (7 sets, daily range): BP systolic 103–118; BP diastolic 60–74; PULSE 55–60; RESP 16–20; TEMP 36.1–36.9; O2SAT 92–98; BMI 24.5
--- NOTE | 2025-09-14 10:42 | HP.PCM_ITS ---
History and Physical Date of Admission: 09/14/25 Date of Service: 09/09/25 MR#: [id number] Acct: [id number] Name: BOBBY BEASLEY Rep #: [id number] : 1950 Provider: Dr. Ellie Marie MD Age/Sex: 75/M Location: [facility] Status: Signed Intake Vital Signs 09/07/2510:12 09/07/2514:59 09/09/2509:14 Height 5 ft 9 in 5 ft 9 in 5 ft 9 in Weight: 166 lb 8 oz 166 lb BMI 24.5 24.5 BP 126/72 H 129/81 H Blood Pressure Location Rt brachial Rt brachial Position Sitting Sitting Respiration 18 17 Pulse 68 50 L Pulse Source Monitor Monitor Temp 97.0 F L Pulse Oximetry (%) 97 96 Oxygen Delivery Method room air room air Intake Visit Reasons: port placement Chief Complaint: port placement Is patient in pain?: No Allergies simvastatin Adverse Reaction (Unknown, Verified 09/09/25 09:17) muscle pain Medications ?Medication ?Instructions ?Recorded ?Confirmed ?Type lisinopril 20 mg tablet 20 mg PO DAILY 09/30/13 09/09/25 History metoprolol tartrate 25 mg tablet 37.5 mg PO BID 09/30/13 09/09/25 History multivitamin with folic acid 400 1 tab PO DAILY 09/30/13 09/09/25 History mcg tablet (Thera) albuterol sulfate 90 mcg/actuation 1 inh inhalation Q4-6H PRN 09/03/2508/22 0 History breath activated powder inhaler shortness of breath or wheezing atorvastatin 10 mg tablet (Lipitor) 10 mg PO QDAY 09/03/25 09/09/25 History budesonide 160 mcg-glycopyr 9 2 inh inhalation BID 09/03/25 09/09/25 H istory mcg-formot 4.8 mcg/actuation HFA inhaler tamsulosin 0.4 mg capsule 0.4 mg PO QHS 09/03/25 09/09/25 History aspirin 81 mg tablet,delayed 81 mg PO DAILY 09/08/25 09/09/25 History release (Adult Aspirin Regimen) Have you fallen in the past year?: No [facility] Medical History (Updated 09/09/25 @ 09:12 by Eli Agrawal) Wears glasses Wears dentures Anxiety Prostate disease Cancer High cholesterol Restless legs Injury of back Former smoker COPD (chronic obstructive pulmonary disease) Leg cramps History of pain when walking History of stress test Meningioma Regional lymph node metastasis present BPH (benign prostatic hyperplasia) Facial paresthesia Coronary atherosclerosis Eruptive melanocytic nevus Small cell lung cancer Myocardial infarct Hypertension Surgical History Hx of colonoscopy Hx of hernia repair History of coronary artery stent placement Family History (Updated 09/07/25 @ 10:11 by Jennifer Giles) Brother Cancer Other Kidney disease Social History Smoking Status: Former smoker Tobacco: How many years used: 50 alcohol intake: current alcohol intake frequency: holidays/special occasions only Alcohol type: beer and wine substance use type: does not use HPI HPI HPI: 75-year-old male presents for port placement. Patient was diagnosed with small cell lung cancer and has his second cycle of chemotherapy beginning of September. ROS General General: Yes fatigue; No weight change, appetite, colon cancer, breast cancer or weakness HEENT HEENT: No difficulty swallowing, eye injury, eye surgery, swollen glands or hoarseness Endo Endocrine: No thyroid disease, diabetes mellitus, thyroid cancer, Hair loss, heat intolerance or cold intolerance Skin Skin: No rash or changing moles Musc Musculoskeletal: No back problems, arthritis, rheumatoid arthritis, gout or joint pain Cardio Cardiovascular: Yes high blood pressure, heart attack and heart stent; No murmur, pacemaker, heart disease, atrial fibrillation, palpitations, shortness of breath with exertion or chest pain Psych Psychiatric: No depression, anxiety or hearing voices Resp Respiratory: Yes shortness of breath, No sleep apnea, No cough, Yes COPD, Yes asthma, No emphysema and No wheezing Gastro Gastrointestinal: No abdominal pain, No nausea or vomiting, No diarrhea, Yes constipation, No blood in stool, No acid reflux, Yes hemorrhoids, No ulcers, No gallbladder problem and No black,tarry stools Ramon Hematologic: No blood thinners, No blood disorders, No bleeding, No anemia and N o blood clots Neuro Neurologic: No system reviewed and no additional complaints, except as documented, No as per HPI, No abnormal gait, No abnormal hearing, No abnormal movements, No abnormal speech, No behavioral changes, No burning sensations, No confusion, No convulsions, No disequilibrium, No dizziness, No localized weakness, No frequent falls, No headache(s), No lack of coordination, No loss of vision, No memory loss, No numbness, No other visual disturbances, No radicular pain, No restless legs, No sensory deficit, No syncope, No tingling, No tremor(s), No weakness and No other Exam Const General: cooperative, healthy appearing, comfortable and no acute distress HENMT Head: normocephalic and atraumatic Neck Neck: supple Resp Effort & Inspection: normal respiratory effort Cardio Rate: regular rate GI Inspection: non-distended Skin General: no rashes or lesions noted Neuro General: CN's II-XI intact bilaterally Extrem General: normal to inspection Psych Mental Status: mental status grossly normal Attitude: cooperative Assessment and Plan Assessment and Plan (1) Encounter for insertion of venous access port: Status: Acute (2) Small cell lung cancer: Status: Acute Plan I have discussed above with the patient- Port-a-Cath placement. Right IJ possible left Patient has been counseled as to the risks/benefits of the procedure. I have explained the risks of the surgery, including but not limited to: infection, bleeding, injury to any blood vessels/nerves, injury to lungs (such as pneumothorax or hemothorax and need for chest tube), not having any access, nonfunctioning of port due to thrombosis, infection of port, etc. the patient understands and agrees to proceed. I have answered all the patient's questions to the patient?s satisfaction and the patient has no further questions. Ellie Marie M.D. Pager: [phone] [facility] [address] [place] [address], [address] [place] [address] Office: [phone] Coding Level of Care Code Off vis,new,level 3 Diagnoses Encounter for insertion of venous access port Z45.2 Small cell lung cancer C34.90 Additional Codes Intake - Is patient in pain?: No (1126F) Clinical Quality Measures Falls Risk Screening/Assistive Devices Have you fallen in the past year?: No 09/11/25 1000 <Electronically signed by Ellie Marie MD> Date [facility]
[2025-09-14] MEDS: Lactated Ringers 1,000 ML 15 ML IV (10:55)
--- NOTE | 2025-09-14 11:03 | PCM.PRE.AN2 ---
ASA Classification* ASA Classification ASA Classification: 3 (HTN, hx stent w/ [place] 2001, DEXTER, COPD, smoker, small cell lung CA ) Assessment & Plan Anesthesia* Anesthesia Assessment Anesthesia Assessment: Discussed sedation and/or anesthesia options, risks, benefits, and alternatives with patient/parents/legal guardian/POA. Questions invited. The patient/parents/legal guardian/POA seems to understand and agrees to proceed with anesthesia plan. Reviewed the physical assessment, medical history, allergy history and patient home medications list prior to surgery/procedure/anesthetic and documented any changes. Performed airway and anesthesia risk assessments. Anesthesia Type Anesthesia Type: MAC History Source History Obtained from:: Patient and Chart Anesthesia Focused Assessment* Temperature: 97.0 F Pulse Rate: 55 Blood Pressure: 118/74 Respiratory Rate: 16 Pulse Ox: 95 Oxygen Delivery Method: Room Air Airway Assessment Mouth opens: >3 cm Mallampati Score: II Neck Range of motion (ROM): Full ROM Labs Anesthesia Preop lab: CBC WBC, (4.4-11.0) 5.5 K/mm3 09/07/25, 11:11 RBC, (4.6-6.2) 3.80 M/mm3 L 09/07/25, 11:11 Hgb, (13.0-16.5) 12.4 g/dL L 09/07/25, 11:11 Hct, (40-54) 37.7 % L 09/07/25, 11:11 Plt Count, (150-450) 102 K/mm3 L 09/09/25, 10:17 CHEMISTRY Potassium, (3.3-5.1) 4.0 mmol/L 09/07/25, 11:11 Sodium, (133-145) 140 mmol/L 09/07/25, 11:11 Magnesium, (1.5-2.2) 1.9 mg/dL 09/07/25, 11:11 Phosphorus, (2.7-4.5) 3.5 mg/dL 09/07/25, 11:11 BUN, (4-19) 15 mg/dL 09/07/25, 11:11 Creatinine, (0.70-1.20) 1.09 mg/dL 09/07/25, 11:11 Glucose, (70-99) 93 mg/dL 09/07/25, 11:11 COAG Pre-Assessment Diagnosis/Proposed Procedure Planned Operative Procedure(s): INSERTION VASCULAR PORT RIGHT POSS LEFT Anesthesia History 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 When Was Last Pacemaker Check QUESTION #4 FULL TEXT: You/Your Family Experience fever (hyperthermia) with Anesthesia Last Oral Intake Last Oral intake: Last Oral Intake NPO since 22:00 09/14/25 10:49 Meds taken in AM with sips of Yes 09/14/25 10:49 water? 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 Female No 09/08/25 13:46 HX of Motion Sickness No 09/08/25 13:46 HX of N/V After Surgery No 09/08/25 13:46 Non-Smoker Yes 09/08/25 13:46 Duration of Surgery greater No 09/08/25 13:46 than 60 minutes Number of Risk Factors 1 09/08/25 13:46 PONV Score Low Risk 09/08/25 13:46 Height & Weight Height & Weight: Anesthesia: Height & Weight Height 5 ft 9 in 09/14/25 10:49 Weight: 75.4 kg 09/14/25 10:49 Body Mass Index (BMI) 24.5 09/14/25 10:49 Respiratory Assessment Respiratory Assessment - vocational childcare teacher: Respiratory Tract Infection Hx - vocational childcare teacher Hx Respiratory Tract Infection No: PNEUMONIA 04/202509/08/25 13:46 STOP Sleep Apnea STOP Sleep Apnea - vocational childcare teacher: STOP Sleep Apnea - vocational childcare teacher Hx Hypertension Yes: CONTROLLED WITH MED 09/08/25 13:46 Hx Sleep Apnea No 09/08/25 13:46 CPAP BIPAP Do you snore loudly (louder Yes 09/08/25 13:46 than talking or can be heard Do you often feel tired/ No 09/08/25 13:46 fatigued/ sleepy during daytime? Has anyone observed you stop No 09/08/25 13:46 breathing during sleep? STOP Results Positive 09/08/25 13:46 QUESTION #5 FULL TEXT : Do you snore loudly (louder than talking or can be heard through closed doors)? 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 Specify any problems Hx of Preganancy in last 3 N/A 09/08/25 13:46 Months Nurse Filling Out Transfusion DSCHRIBER 09/08/25 13:46 & Questions: Date: 09/08/25 09/08/25 13:46 Time: 13:48 09/08/25 13:46 Patient unable to answer at this time (ie. 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: /Reproductive Hx- vocational childcare teacher Hx Now No 09/08/25 13:46 Gestational Age (in weeks): EDC: Hx Hx Para Hx Section SAB No 09/08/25 13:46 Does the father of the baby or his family experience fever w Father of the baby Malignant Hypertension history comment Active Medications Active Medications: Current Medications Generic Name Dose Route Start Last Admin Trade Name Freq PRN Reason Stop Dose Admin Lactated Ringer's 1,000 mls @ 15 mls/hr 09/14/25 10:45 09/14/25 10:55 IV 15 mls/hr .Q48H JAVIER Administration PFSH Medical History (Updated 09/09/25 @ 09:12 by Eli Agrawal) Wears glasses Wears dentures Anxiety Prostate disease Cancer High cholesterol Restless legs Injury of back Former smoker COPD (chronic obstructive pulmonary disease) Leg cramps History of pain when walking History of stress test Meningioma Regional lymph node metastasis present BPH (benign prostatic hyperplasia) Facial paresthesia Coronary atherosclerosis Eruptive melanocytic nevus Small cell lung cancer Myocardial infarct Hypertension Home Medications ?Medication ?Instructions ?Recorded ?Last Taken ?Type lisinopril 20 mg tablet 20 mg PO DAILY 09/30/13 09/14/25 08:00 History metoprolol tartrate 25 mg tablet 37.5 mg PO BID 09/30/13 09/14/25 08:00 History multivitamin with folic acid 400 1 tab PO DAILY 09/30/13 Unknown History mcg tablet (Thera) albuterol sulfate 90 mcg/actuation 1 inh inhalation Q4-6H PRN 09/03/25 Unknown History breath activated powder inhaler shortness of breath or wheezing atorvastatin 10 mg tablet (Lipitor) 10 mg PO QDAY 09/03/25 Unknown History budesonide 160 mcg-glycopyr 9 2 inh inhalation BID 09/03/25 Unknown History mcg-formot 4.8 mcg/actuation HFA inhaler tamsulosin 0.4 mg capsule 0.4 mg PO QHS 09/03/25 Unknown History aspirin 81 mg tablet,delayed 81 mg PO DAILY 09/08/25 Unknown History release (Adult Aspirin Regimen) diphenhydramine HCl 25 mg capsule 25 mg PO Q8H PRN allergies 09/14/25 09/14/25 08:00 History (Allergy (diphenhydramine)) Allergy/AdvReac Type Severity Reaction Status Date / Time simvastatin AdvReac Unknown muscle pain Verified 09/14/25 10:47 Family History (Updated 09/07/25 @ 10:11 by Jennifer Giles) Brother Cancer Other Kidney disease Surgical History Hx of colonoscopy Hx of hernia repair History of coronary artery stent placement Social History Smoking Status: Current every day smoker tobacco type: cigarettes Tobacco: How many years used: 50 alcohol intake: current alcohol intake frequency: holidays/special occasions only Alcohol type: beer and wine substance use type: does not use Review of Systems (Anesthesia) ROS Narrative System reviewed and no additional complaints, except as documented. Physical Exam Const alert, oriented x3 and average body habitus Resp normal respiratory effort, normal air movement and clear to auscultation bilaterally Cardio regular rate, regular rhythm and no murmurs; Negative for diaphoretic
[2025-09-14] MEDS: Lactated Ringers 1,000 ML 1000 ML IV (12:12)
[2025-09-14] MEDS: Midazolam 2 MG/2 ML Syringe IV (12:12)
[2025-09-14] MEDS: Cefazolin 1 GM/5 ML Vial 2 GM IV (12:15)
[2025-09-14] MEDS: Lidocaine 1% (5 ml sdv) 5 ML Vial IV (12:15)
[2025-09-14] MEDS: fentaNYL 100 MCG/2 ML Ampul 50 MCG IV (12:20)
--- OUTSIDE RECORDS SUMMARY | 2025-09-14 12:21 | XMS RPT_ITS | CCD ---
Author Organization [facility] Inform ion Partnership [facility] Care Team Providers Care Photographers' Model Name Role Phone [place], [place] Primary Care Provider Gigi Mccollum MD Emergency Provider [place] [address] Primary Care Unavailable Gigi Leal Attending Unavailable Medications Current Medications Medication Drug Class(es) Dates Sig (Normalized) Sig (Original) aspirin 325 mg oral tablet (3 sources) Platelet Aggregation Inhibitor, Nonsteroidal Anti-inflammatory Drug Start: 09-30-2013 take 1 tablet by mouth once daily Aspirin 325 MG tablet Active 325 mg PO DAILY@0800 September 30, 2013 1:00am azithromycin 250 mg oral tablet (1 source) Macrolide Antimicrobial Start: 05-03-2025 Azithromycin 250 mg tablet Active 0 PO .COMPLEX 6 0 May 03, 2025 12:00am For 250 mg dose pack: take 500 mg today (day 1), then 250 mg for 4 days (days 2-5) lisinopril 20 mg oral tablet (3 sources) Angiotensin Converting Enzyme Inhibitor Start: 09-30-2013 take 1 tablet by mouth once daily Lisinopril 20 MG tablet Active 20 mg PO DAILY September 30, 2013 1:00am metoprolol tartrate 25 mg oral tablet (3 sources) beta-Adrenergic Anay Start: 09-30-2013 Metoprolol Tartrate 25 MG tablet Active 37.5 mg PO TWICE A DAY September 30, 2013 1:00am Start: 09-30-2013 take 37.5 mg by mout h twice daily Metoprolol Tartrate Active 37.5 MG PO TWICE A DAY September 30, 2013 1:00am Multivitamin With Folic Acid (Thera) 1 TABLET tablet (3 sources) Start: 09-30-2013 take 1 tablet by mouth once daily Multivitamin With Folic Acid (Thera) 1 TABLET tablet Active 1 {tbl} PO DAILY September 30, 2013 1:00am Start: 09-30-2013 take 1 tablet by courtney th once daily Multivitamin With Folic Acid (Thera) 1 TABLET tablet Active 1 TABLET PO DAILY September 30, 2013 1:00am Start: 09-30-2013 take 1 tablet by courtney th once daily Multivitamin With Folic Acid (Thera) 1 TABLET tablet Active 1 TABLET PO DAILY September 30, 2013 12:00am pravastatin sodium 40 mg oral tablet (3 sources) HMG-CoA Reductase Inhibitor Start: 09-30-2013 take 2 tablets by mouth once daily Pravastatin 40 MG tablet Active 80 mg PO DAILY September 30, 2013 1:00am Start: 09-30-2013 take 80 mg by mouth once daily Pravastatin Active 80 MG PO DAILY September 30, 2013 1:00am Completed/Discontinued Medications Medication Drug Class(es) Dates Sig (Normalized) Sig (Original) acetaminophen 325 mg / HYDROcodone bitartrate 5 mg oral tablet (2 sources) Opioid Agonist Start: 11-21-2022 End: 05-03-2025 take 1 tablet by mouth every four hours as needed for pain Hydrocodone-Acetami nophen 5-325 mg tablet Discontinued 1 {tbl} PO Q4H as needed for pain 6 November 21, 2022 May 03, 2025 8:33pm Fracture of rib of right side Fracture of one rib, right side, initial encounter for closed fracture Start: 11-21-2022 take 1 tablet by courtney th every four hours Hydrocodone-Acetaminophen Active 1 TABLE T PO Q4H 09 04November 21, 2022 Problems Problem Classification Problem Date Documented Da te Episodic/Chronic Abdominal pain (2 sources) Left flank pain; Translations: [Unspecified abdominal pain] 02-08-2024 Episodic E Codes: Fall (2 sources) Fall; Translations: [Unspecified fall, initial encounter] 11-29-2022 Episodic Fracture of lower limb (3 sources) Fracture of great toe ; Translations: [Displaced fracture of distal phalanx of unspecified great toe, initial encounter for closed fracture] 05-19-2019 Episodic Nonspecific chest pain (2 sources) Tight chest; Translations: [Other chest pain] Onset: 05-08-2025 05-03-2025 Episodic Other fractures (2 sources) Fracture of right rib; Translations: [Fracture of one rib, right side, initial encounter for closed fracture] 11-29-2022 Episodic Other injuries and conditions due to external causes (1 source) Contusion of rib; Translations: [Other specified injuries of thorax, initial encounter] 11-27-2022 Episodic Pneumonia (except that caused by tuberculosis or sexually transmitted disease) (1 source) Atypical pneumonia; Translations: [Pneumonia, unspecified organism] 05-03-2025 Episodic Substance-related disorders (1 source) Smoker; Translations: [Nicotine dependence, unspecified, uncomplicated] 05-03-2025 Chronic Superficial injury; contusion (5 sources) Contusion of back; Translations: [Contusion of unspecified back wall of thorax, initial encounter] 11-19-2022 Episodic Results Test Name Value Interpretation Reference Range Facility L499.0043on 05-04-2025 Trop T High Sen Normal <=22 [facility] Comment on above: Result Comment: Canc elled via OM: Order cancelled - Patient discharged Performed By: #### L 499.0043 #### [facility] [address] [place], [address] 12 Lead EKGon 05-03-2025 12 Lead EKG [facility] Cardiovascular Services [address] [place] [address] 12 Lead EKG 05/03/252027 MR#: [id number] Acct: [id number] Name: BOBBY BEASLEY Rep #: [id number] : 1950 74 From: Lobito Delgadillo MD Attending Dr: Status: DEP ER Ordering Dr: Gigi Leal MD Date: 05/03/25 Location: ED Sex: M C Admitted: Test Reason : CP Blood Pressure : */* mmHG Vent. Rate : 66 BPM Atrial Rate : 66 BPM P-R Int : 132 ms QRS Dur : 130 ms QT Int : 430 ms P-R-T Axes : 63 95 40 degrees QTcB Int : 450 ms Sinus rhythm with Premature supraventricular complexes Right bundle branch block Abnormal ECG Confirmed by Lobito Delgadillo ([id number]), editorial assistant ALEKSANDRA GALLAGHER ([id number]) on 05/05/2025 11:21:35 AM Referred By: DARVIN Confirmed By: Lobito Delgadillo 05/05/25 1121 Date Lobito Delgadillo MD CC: Dr. Gigi Leal MD; [facility] Signed Normal [facility] Absolute lymphocyte countOrd ered By: ED PROVIDER on 05-03-2025 Lymphocytes Auto (Unsp spec) [#/Vol] 2.82 10*3/uL 0.83-4.51 [facility] Absolute neutrophil countOrd ered By: ED PROVIDER on 05-03-2025 Neutrophils (Bld) [#/Vol] 4.5 10*3/uL 2.0-7.7 [facility] Anion gap in Serum or Plasma Ordered By: Gigi Leal on 05-03-2025 Anion gap [Moles/Vol] 12 mmol/L - [facility] Automated lymphocyte count a s percentage of total leukocytesOrdered By: ED PROVIDER on 05-03-2025 Lymphocytes/100 WBC Auto (Unsp spec) 32.9 % - [facility] BUN/creatinine ratioOrdered By: Gigi Leal on 05-03-2025 Urea nitrogen/Creatinine [Mass ratio] 14.1 mg/mg 10- [facility] Basic Metabolic Profile (BMP )on 05-03-2025 BUN/CRE 14.1 RATIO Normal - [facility] Comment on above: Performed By: #### L 100.0100, L500.2500, L501.4021 #### [facility] [address] [place], [address] Calcium [Mass/Vol] 9.1 mg/dL Normal 7.6-11.0 [facility] Comment on above: Performed By: #### L 100.0100, L500.2500, L501.4021 #### [facility] [address] [place], [address] Chloride [Moles/Vol] 104 mmol/L Normal 98-108 [facility] Comment on above: Performed By: #### L 100.0100, L500.2500, L501.4021 #### [facility] [address] [place], [address] CO2 [Moles/Vol] 24.2 mmol/L Normal 21.0-32.0 [facility] Comment on above: Performed By: #### L 100.0100, L500.2500, L501.4021 #### [facility] [address] [place], [address] Creatinine [Mass/Vol] 1.32 mg/dL High 0.70-1.20 [facility] Comment on above: Performed By: #### L 100.0100, L500.2500, L501.4021 #### [facility] [address] [place], [address] ECRCL 50.59 ml/min Normal 50-250 [facility] Comment on above: Performed By: #### L 100.0100, L500.2500, L501.4021 #### [facility] [address] [place], [address] GAP 12 Normal 5-15 [facility] Comment on above: Performed By: #### L 100.0100, L500.2500, L501.4021 #### [facility] [address] [place], [address] GFR/1.73 sq M.predicted among non-blacks MDRD (S/P/Bld) [Vol rate/Area] 57 mL/min/{1.73_m2} Low >60 [facility] Comment on above: Result Comment: mL/m in/1.73m2 CKD-EPI Creatinine Equation (2020) Performed By: #### L 100.0100, L500.2500, L501.4021 #### [facility] [address] [place], [address] Glucose [Mass/Vol] 111 mg/dL High 70-99 [facility] Comment on above: Performed By: #### L 100.0100, L500.2500, L501.4021 #### [facility] [address] [place], [address] Potassium [Moles/Vol] 4.1 mmol/L Normal 3.3-5.1 [facility] Comment on above: Result Comment: Hemo lysis present, Results??could be affected. ?? Performed By: #### L 100.0100, L500.2500, L501.4021 #### [facility] [address] [place], [address] Sodium [Moles/Vol] 140 mmol/L Normal 133-145 [facility] Comment on above: Performed By: #### L 100.0100, L500.2500, L501.4021 #### [facility] [address] [place], [address] Urea nitrogen [Mass/Vol] 19 mg/dL Normal 4-19 [facility] Comment on above: Performed By: #### L 100.0100, L500.2500, L501.4021 #### [facility] [address] [place], [address] Basophil percentageOrdered B y: ED PROVIDER on 05-03-2025 Basophils/100 WBC (Bld) 0.5 % 0-1 [facility] CBC W/Diff, Automatedon 04-20 Absolute Lymph 2.82 X10 3/uL Normal 0.83-4.51 [facility] Comment on above: Performed By: #### L 100.0100, L500.2500, L501.4021 #### [facility] [address] [place], [address] Absolute Neut 4.5 X10 3/uL Normal 2.0-7.7 [facility] Comment on above: Performed By: #### L 100.0100, L500.2500, L501.4021 #### [facility] [address] [place], [address] Basophils/100 WBC (Bld) 0.5 % Normal 0-1 [facility] Comment on above: Performed By: #### L 100.0100, L500.2500, L501.4021 #### [facility] [address] [place], [address] Eosinophils/100 WBC (Bld) 2.7 % Normal 0-5 [facility] Comment on above: Performed By: #### L 100.0100, L500.2500, L501.4021 #### [facility] [address] [place], [address] Erythrocyte distribution width (RBC) [Ratio] 14.1 % Normal 11.6-14.6 [facility] Comment on above: Performed By: #### L 100.0100, L500.2500, L501.4021 #### [facility] [address] [place], [address] Hematocrit (Bld) [Volume fraction] 44.4 % Normal 40-54 [facility] Comment on above: Performed By: #### L 100.0100, L500.2500, L501.4021 #### [facility] [address] [place], [address] Hemoglobin (Bld) [Mass/Vol] 15.1 g/dL Normal 13.0-16.5 [facility] Comment on above: Performed By: #### L 100.0100, L500.2500, L501.4021 #### [facility] [address] [place], [address] IG% 0.400 Normal 0.0-0.9 [facility] Comment on above: Result Comment: IG% - Immature Granulocytes (promyelocytes, myelocytes and metamyelocytes) > 1% indicates that a LEFT SHIFT is Present. Performed By: #### L 100.0100, L500.2500, L501.4021 #### [facility] [address] [place], [address] Lymphocytes/100 WBC (Bld) 32.9 % Normal 19-41 [facility] Comment on above: Performed By: #### L 100.0100, L500.2500, L501.4021 #### [facility] [address] [place], [address] MCH (RBC) [Entitic mass] 32.7 pg High 27.0-32.0 [facility] Comment on above: Performed By: #### L 100.0100, L500.2500, L501.4021 #### [facility] [address] [place], [address] MCHC (RBC) [Mass/Vol] 34.0 g/dL Normal 32-36 [facility] Comment on above: Performed By: #### L 100.0100, L500.2500, L501.4021 #### [facility] [address] [place], [address] MCV (RBC) [Entitic vol] 96.1 fL High 80-94 [facility] Comment on above: Performed By: #### L 100.0100, L500.2500, L501.4021 #### [facility] [address] [place], [address] Monocytes/100 WBC (Bld) 11.4 % High 0-10 [facility] Comment on above: Performed By: #### L 100.0100, L500.2500, L501.4021 #### [facility] [address] [place], [address] Neutrophils/100 WBC (Bld) 52.1 % Normal 47-70 [facility] Comment on above: Performed By: #### L 100.0100, L500.2500, L501.4021 #### [facility] [address] [place], [address] Nucleated RBC (Bld) [#/Vol] 0 10*3/uL Normal 0-5 [facility] Comment on above: Performed By: #### L 100.0100, L500.2500, L501.4021 #### [facility] [address] [place], [address] Platelet mean volume (Bld) [Entitic vol] 10.7 fL Normal 6.2-12.0 [facility] Comment on above: Performed By: #### L 100.0100, L500.2500, L501.4021 #### [facility] [address] [place], [address] Platelets (Bld) [#/Vol] 194 10*3/uL Normal 150-450 [facility] Comment on above: Performed By: #### L 100.0100, L500.2500, L501.4021 #### [facility] [address] [place], [address] RBC (Bld) [#/Vol] 4.62 10*6/uL Normal 4.6-6.2 [facility] Comment on above: Performed By: #### L 100.0100, L500.2500, L501.4021 #### [facility] [address] [place], [address] RDW SD 49.6 fl High 35.1-43.9 [facility] Comment on above: Performed By: #### L 100.0100, L500.2500, L501.4021 #### [facility] [address] [place], [address] WBC (Bld) [#/Vol] 8.6 10*3/uL Normal 4.4-11.0 [facility] Comment on above: Performed By: #### L 100.0100, L500.2500, L501.4021 #### [facility] [address] [place], [address] Carbon dioxide, total [Moles /volume] in Central venous bloodOrdered By: Gigi Leal on 05-03-2025 CO2 [Moles/Vol] 24.2 mmol/L 21.0-32.0 [facility] Chest 1 View (Portable)on Chest 1 View (Portable) [facility] Imaging Services [address] [place] [address] Chest 1 View (Portable) MR#: [id number] Acct: [id number] Name: BEASLEYALEXANDEREleanor Vick Rep #: [id number] : 1950 M 74 From: Hilary Burnham PCP: [facility] Status: REG ER Study: Chest 1 View (Portable) Date of Exam: 05/03/25 Exam# [id number] Ordering Dr: Gigi Leal MD PROCEDURE: CHEST 1 VIEW (PORTABLE) 05/03/2025 REASON FOR EXAM: CHEST PAIN TECHNIQUE: Frontal view of the chest. COMPARISON: 11/21/2022 FINDINGS: Scattered calcified granulomas. Diffuse reticular opacities may reflect atypical pneumonia, mild pulmonary edema, and/or underlying chronic lung disease. Right lower lobe opacity is not excluded. No pleural effusion or pneumothorax. Cardiac silhouette is unchanged. Calcified aortic arch. RAD/Chest 1 View (Portable) IMPRESSION: Diffuse reticular opacities may reflect atypical pneumonia, mild pulmonary edema, and/or underlying chronic lung disease. Right lower lobe opacity is not excluded. Reading Location: [facility] CC: Dr. Gigi Leal MD; [facility] City Controller: Signed Normal [facility] Chloride assayOrdered By: Ajith Leal on 05-03-2025 Chloride [Moles/Vol] 104 mmol/L 98-108 [facility] Emergency Department Summary on 05-03-2025 Emergency Department Summary [facility] Medical Records Department [address] [place] [address] Emergency Department Summary 05/03/25 MR#: [id number] Acct: [id number] Name: BOBBY BEASLEY Rep #: [id number] : 1950 74 From: Gigi Leal MD PCP: [facility] Status:REG ER Location: ED HPI History of Present Illness Chief Complaint: Chest Pain Narrative Narrative: 74-year-old male past medical history of hypertension and coronary artery disease had stenting of his coronary arteries in 2003 presents with chest pain and tightness that he experienced approximately 2 hours ago. It was around 7 PM when he had just eaten dinner and was sitting trying to rest. He felt chest tightness for at least an hour. He called the side and around 8:20 PM, who brought him to the emergency department. He states he may have been slightly nauseated but no vomiting, no shortness of breath but he was mildly diaphoretic. He continues to smoke cigarettes, approximately a pack a day. He denies any exacerbating or alleviating factors. No leg swelling. He is currently pain-free. [facility] Medical History Myocardial infarct Hypertension Home Medications ???Medication ???Instructions ???Recorded ???Last Taken ???Type aspirin 325 mg tablet 325 mg PO DAILY@0800 09/30/13 Unkn own History lisinopril 20 mg tablet 20 mg PO DAILY 09/30/13 Unknown [facility] metoprolol tartrate 25 mg tablet 37.5 mg PO BID 09/30/13 Unknown [facility] multivitamin with folic acid 400 1 tab PO DAILY 09/30/13 Unknown [facility] mcg tablet (Thera) pravastatin 40 mg tablet 80 mg PO DAILY 09/30/13 Unknown [facility] story azithromycin 250 mg tablet See Rx Instructions PO .COMPLEX #6 05/03/25 Unknown Rx tabs Allergy/AdvReac Type Severity Reaction Status Date / Time No Known Allergies Allergy Verified 05/03/25 20:23 Surgical History History of coronary artery stent placement Social History Smoking Status: Current every day smoker tobacco type: cigarettes ROS ROS ED ROS Narrative Review of systems positive for chest tightness and diaphoresis. Perhaps slight nausea but no vomiting, no shortness of breath. No fevers or chills. Chronic cough in the mornings. No leg sw elling. No exacerbating or alleviating factors. Currently pain-free. EXAM Physical Exam Narrative Exam Narrative: Afebrile. Vital signs noted. Nontoxic-appearing. Cardiovascular examination reveals regular rate and rhythm. Lungs are clear to auscultation bilaterally with rare expiratory wheeze, moving a good amount of air. Abdomen soft and nontender with positive bowel sounds, no guarding or rebound. Neurological examination nonfocal, nonlateralizing. No pedal edema bilaterally. Const Vital Signs: 05/03/25 20:21 05/03/25 20:22 05/03/25 20:47 Temperature 98.6 F Temperature Source Oral Pulse Rate 70 Respiratory Rate 18 Respiratory Effort Short of Breath Respiratory Pattern Blood Pressure 115/83 H Blood Pressure Mean 93 Pulse Ox 100 93 Oxygen Delivery Method Room Air 05/03/25 21:21 05/03/25 22:00 05/03/25 23:00 Temperature Temperature Source Pulse Rate 71 66 64 Respiratory Rate 22 H 24 H 17 Respiratory Effort Respiratory Pattern Blood Pressure 162/88 H 154/90 H 162/94 H Blood Pressure Mean 112 111 116 Pulse Ox 93 93 95 Oxygen Delivery Method Room Air Room Air Room Air 05/03/25 23:02 Temperature Temperature Source Pulse Rate 64 Respiratory Rate 20 H Respiratory Effort Respiratory Pattern Normal Blood Pressure Blood Pressure Mean Pulse Ox Oxygen Delivery Method MDM MDM MDM Narrative Medical decision making narrative: The differential diagnosis includes but not limited to ACS versus COPD exacerbation versus pneumonia versus pneumothorax. I have low suspicion for pulmonary embolism because history and physical does not support this. EKG obtained interpreted by myself independently as normal sinus rhythm at 66 bpm with premature supraventricular complexes. There is a right bundle branch block present. No prior EKG with which to compare. I reviewed his laboratory work and he has normal white count of 8.6 with hemoglobin normal at 15.1, hematocrit 44.4, platelet count 194. BMP remarkable for creatinine of 1.32. Glucose 111. Initial high-sensitivity troponin 12. Chest x-ray interpreted by myself shows diffuse reticular opacities which could be atypical pneumonia versus interstitial edema. I added a BNP and its normal at 272. I do think he is in heart failure. I reviewed the radiology report which confirms my independent interpretation. I do feel in treating an atypical pneumon (more content not included)... Normal [facility] Eosinophil percentageOrdered By: ED PROVIDER on 05-03-2025 Eosinophils/100 WBC (Bld) 2.7 % 0-5 [facility] Erythrocyte distribution wid th ratioOrdered By: ED PROVIDER on 05-03-2025 Erythrocyte distribution width (RBC) [Ratio] 14.1 % 11.6-14.6 [facility] Erythrocyte distribution wid th standard deviationOrdered By: ED PROVIDER on 05-03-2025 Erythrocyte distribution width (RBC) [Ratio] 49.6 fl High 35.1-43.9 [facility] Glomerular filtration rate ( GFR) estimation/1.73 sq m using serum, plasma, or whole bOrdered By: Gigi Leal on 05-03-2025 GFR/1.73 sq M.predicted among non-blacks MDRD (S/P/Bld) [Vol rate/Area] 57 mL/min/{1.73_m2} Low >60 [facility] Comment on above: mL/min/1.73m2 CKD-EP I Creatinine Equation (2020) Hematocrit Auto (Bld) [Volum e fraction]Ordered By: ED PROVIDER on 05-03-2025 Hematocrit (Bld) [Volume fraction] 44.4 % 40-54 [facility] Hemoglobin measurementOrdere d By: ED PROVIDER on 05-03-2025 Hemoglobin (Bld) [Mass/Vol] 15.1 g/dL 13.0-16.5 [facility] Immature granulocytes/100 WB C Auto (Bld)Ordered By: ED PROVIDER on 05-03-2025 Immature granulocytes/100 WBC (Bld) 0.400 % 0.0-0.9 [facility] Comment on above: IG% - Immature Granu locytes (promyelocytes, myelocytes and metamyelocytes) > 1% indicates that a LEFT SHIFT is Present. L499.0042on 05-03-2025 Trop T High Sen 14 ng/L Normal <=22 [facility] Comment on above: Performed By: #### L 499.0042 #### [facility] [address] [place], [place], [address] L501.4021on 05-03-2025 Trop T High Sen 12 ng/L Normal <=22 [facility] Comment on above: Performed By: #### L 100.0100, L500.2500, L501.4021 #### [facility] [address] [place], [address] L503.7505on 05-03-2025 Natriuretic peptide B (Bld) [Mass/Vol] 272 pg/mL Normal <=900 [facility] Comment on above: Result Comment: Hear t Failure Unlikely: < 300 pg/mL Heart Failure Likely < 50 Years: > 450 pg/mL 50-75 Years: > 900 pg/mL >75 Years: > 1800 pg/mL Performed By: #### L 503.7505 #### [facility] [address] [facility] [place], [address] MCV (mean corpuscular volume ) determinationOrdered By: ED PROVIDER on 05-03-2025 MCV (RBC) [Entitic vol] 96.1 fL High 80-94 [facility] Mean corpuscular hemoglobin (MCH) determinationOrdered By: ED PROVIDER on 05-03-2025 MCH (RBC) [Entitic mass] 32.7 pg High 27.0-32.0 [facility] Mean corpuscular hemoglobin concentration (MCHC) determinationOrdered By: ED PROVIDER on 05-03-2025 MCHC (RBC) [Mass/Vol] 34.0 g/dL 32-36 [facility] Mean platelet volume determi nationOrdered By: ED PROVIDER on 05-03-2025 Platelet mean volume (Bld) [Entitic vol] 10.7 fL 6.2-12.0 [facility] Monocyte percentageOrdered B y: ED PROVIDER on 05-03-2025 Monocytes/100 WBC (Bld) 11.4 % High 0-10 [facility] Natriuretic peptide.B prohor evans N-Terminal [Mass/volume] in Serum or PlasmaOrdered By: Gigi Leal on 05-03-2025 Natriuretic peptide.B prohormone N-Terminal [Mass/Vol] 272 pg/mL <900 [facility] Comment on above: Heart Failure Unlike ly: < 300 pg/mLHeart Failure Likely< 50 Years: > 450 pg/mL50-75 Years: > 900 pg/mL>75 Years: > 1800 pg/mL Neutrophil percentageOrdered By: ED PROVIDER on 05-03-2025 Neutrophils/100 WBC (Bld) 52.1 % 47-70 [facility] Nucleated red blood cell per centageOrdered By: ED PROVIDER on 05-03-2025 Nucleated RBC/100 WBC (Bld) [Ratio] 0 % 0-5 [facility] Platelet countOrdered By: ED PROVIDER on 05-03-2025 Platelets (Bld) [#/Vol] 194 10*3/uL 150-450 [facility] Potassium measurement (mass/ volume)Ordered By: Gigi Leal on 05-03-2025 Potassium (Unsp spec) [Mass/Vol] 4.1 mmol/L 3.3-5.1 [facility] Comment on above: Hemolysis present, R esults could be affected. RBC Auto (Bld) [#/Vol]Ordere d By: ED PROVIDER on 05-03-2025 RBC (Bld) [#/Vol] 4.62 10*6/uL 4.6-6.2 [facility] Serum creatinine measurement (mass/volume)Ordered By: Gigi Leal on 05-03-2025 Creatinine [Mass/Vol] 1.32 mg/dL High 0.70-1.20 [facility] Serum glucose measurement (m ass/volume)Ordered By: Gigi Leal on 05-03-2025 Glucose [Mass/Vol] 111 mg/dL High 70-99 [facility] Serum or plasma calcium heather urement (mass/volume)Ordered By: Gigi Leal on 05-03-2025 Calcium [Mass/Vol] 9.1 mg/dL 7.6-11.0 [facility] Serum or plasma urea nitroge n measurement (mass/volume)Ordered By: Gigi Leal on 05-03-2025 Urea nitrogen [Mass/Vol] 19 mg/dL 4-19 [facility] Sodium levelOrdered By: Gigi Leal on 05-03-2025 Sodium [Moles/Vol] 140 mmol/L 133-145 [facility] Troponin T.cardiac [Mass/vol ume] in Serum or Plasma by High sensitivity methodOrdered By: Gigi Leal on 05-03-2025 Troponin T.cardiac High sensitivity method [Mass/Vol] 14 ng/L <22 [facility] Troponin T.cardiac High sensitivity method [Mass/Vol] 12 ng/L <22 [facility] White blood cell (WBC) count Ordered By: ED PROVIDER on 05-03-2025 WBC (Bld) [#/Vol] 8.6 10*3/uL 4.4-11.0 [facility] Absolute lymphocyte countOrd ered By: Geetha Escalona on 02-08-2024 Lymphocytes Auto (Unsp spec) [#/Vol] 1.63 10*3/uL 0.83-4.51 [facility] Automated lymphocyte count a s percentage of total leukocytesOrdered By: Geetha Escalona on 02-08-2024 Lymphocytes/100 WBC Auto (Unsp spec) 24.3 % 19-41 [facility] Basophil percentageOrdered B y: Geetha Escalona on 02-08-2024 Basophil percentage 5-10 SEEN /hpf 0-5 [facility] Basophils/100 WBC (Bld) 0.6 % 0-1 [facility] Chloride [Moles/Vol] 105 mmol/L 98-107 [facility] Eosinophils/100 WBC (Bld) 2.1 % 0-5 [facility] Glucose [Mass/Vol] 89 mg/dL 74-106 [facility] Hemoglobin (Bld) [Mass/Vol] 15.9 g/dL 13.0-16.5 [facility] Monocytes/100 WBC (Bld) 10.6 % 0-10 [facility] Neutrophils (Bld) [#/Vol] 4.2 10*3/uL 2.0-7.7 [facility] Neutrophils/100 WBC (Bld) 62.0 % 47-70 [facility] Potassium [Moles/Vol] 4.4 mmol/L 3.5-5.1 [facility] Sodium [Moles/Vol] 139 mmol/L 136-145 [facility] WBC (Bld) [#/Vol] 6.7 10*3/uL 4.4-11.0 [facility] Bilirubin Test strip Ql (U)O rdered By: Geetha Escalona on 02-08-2024 Bilirubin Ql (U) Negative Negative [facility] Determination of erythrocyte mean corpuscular volume (MCV)Ordered By: Geetha Escalona on 02-08-2024 MCV (RBC) [Entitic vol] 97.4 fL 80-94 [facility] Erythrocyte distribution wid th ratioOrdered By: Geetha Escalona on 02-08-2024 Erythrocyte distribution width (RBC) [Ratio] 13.9 % 11.6-14.6 [facility] Erythrocyte distribution wid th standard deviationOrdered By: Geetha Escalona on 02-08-2024 Erythrocyte distribution width (RBC) [Entitic vol] 49.9 fL 35.1-43.9 [facility] Hematocrit Auto (Bld) [Volum e fraction]Ordered By: Geetha Escalona on 02-08-2024 Hematocrit (Bld) [Volume fraction] 48.7 % 40-54 [facility] Immature granulocytes/100 WB C Auto (Bld)Ordered By: Geetha Escalona on 02-08-2024 Immature granulocytes/100 WBC (Bld) 0.400 % 0.0-0.9 [facility] Comment on above: IG% - Immature Granu locytes (promyelocytes, myelocytes and metamyelocytes) > 1% indicates that a LEFT SHIFT is Present. Ketones Test strip Ql (U)Ord ered By: Geetha Escalona on 02-08-2024 Ketones Ql (U) Negative Negative [facility] Laboratory - Chemistry and C hemistry - challengeOrdered By: Geetha Escalona on 02-08-2024 CO2 [Moles/Vol] 31.0 mmol/L 21.0-32.0 [facility] Urea nitrogen/Creatinine [Mass ratio] 12.1 mg/mg 10-20 [facility] - Hematology and Cell countsOrdered By: Geetha Escalona on 02-08-2024 MCH (RBC) [Entitic mass] 31.8 pg 27.0-32.0 [facility] MCHC (RBC) [Mass/Vol] 32.6 g/dL 32-36 [facility] Nucleated RBC/100 WBC (Bld) [Ratio] 0 % 0-5 [facility] Platelet mean volume (Bld) [Entitic vol] 11.0 fL 6.2-12.0 [facility] Platelets (Bld) [#/Vol] 185 10*3/uL 150-450 [facility] Mucus LM Ql (Urine sed)Order ed By: Geetha Escalona on 02-08-2024 Mucus Ql (Urine sed) 0 SEEN /hpf [facility] Nitrite Test strip Ql (U)Ord ered By: Geetha Escalona on 02-08-2024 Nitrite Ql (U) Negative Negative [facility] No Panel InformationOrdered By: Geetha Escalona on 02-08-2024 Urine RBC 0 SEEN /hpf 0-5 [facility] Estimated Creatinine Clearance Calc 54.64 ml/min [facility] Estimated GFR (MDRD) Amer 74 mL/min >60 [facility] Comment on above: GFR Calc Estimated GFR (MDRD) Non-Af Amer 61 mL/min >60 [facility] Comment on above: Non- GFR Calc Protein Test strip Ql (U)Ord ered By: Geetha Escalona on 02-08-2024 Protein Ql (U) 15 mg/dl Negative [facility] RBC Auto (Bld) [#/Vol]Ordere d By: Geetha Escalona on 02-08-2024 RBC (Bld) [#/Vol] 5.00 10*6/uL 4.6-6.2 [facility] Serum or plasma calcium heather urement (mass/volume)Ordered By: Geetha Escalona on 02-08-2024 Calcium [Mass/Vol] 8.8 mg/dL 8.5-10.1 [facility] Serum or plasma creatinine m easurement (mass/volume)Ordered By: Geetha Escalona on 02-08-2024 Creatinine [Mass/Vol] 1.24 mg/dL 0.70-1.30 [facility] Comment on above: The validity of the calculated GFR & GFRAA in patients over 70 years has not been determined. Clinical correlation is essential. Serum or plasma urea nitroge n measurement (mass/volume)Ordered By: Geetha Escalona on 02-08-2024 Urea nitrogen [Mass/Vol] 15 mg/dL 7-18 [facility] Squamous epithelial cells de tection in urine sediment by light microscopyOrdered By: Geetha Escalona on 02-08-2024 Epithelial cells.squamous LM Ql (Urine sed) 0 SEEN /hpf 0-5 [facility] Thin prep Papanicolaou smear with manual screeningOrdered By: Geetha Escalona on 02-08-2024 Thin prep Papanicolaou smear with manual screening 3 5-15 [facility] Urine blood detectionOrdered By: Geetha Escalona on 02-08-2024 RBC Ql (U) 10 /ul Negative [facility] Urine clarityOrdered By: Amanda Escalona on 02-08-2024 Clarity (U) Clear Clear [facility] Urine color determinationOrd ered By: Geetha Escalona on 02-08-2024 Color (U) Yellow Yellow [facility] Urine glucose detectionOrder ed By: Geetha Escalona on 02-08-2024 Glucose Ql (U) Normal mg/dl Normal [facility] Urine leukocyte esterase det ection by dipstickOrdered By: Geetha Escalona on 02-08-2024 Leukocyte esterase Test strip Ql (U) 25 /ul Negative [facility] Urine pHOrdered By: Geetha de león on 02-08-2024 pH (U) 7.0 [pH] 5.0 - 8.0 [facility] Urine sediment bacteria coun t by microscopy (number/high power field)Ordered By: Geetha Escalona on 02-08-2024 Bacteria LM.HPF (Urine sed) [#/Area] 0 /[HPF] None Seen [facility] Urine specific gravity measu rementOrdered By: Geetha Escalona on 02-08-2024 Specific gravity (U) [Rel density] 1.010 1.002-1.030 [facility] Urine urobilinogen measureme ntOrdered By: Geetha Escalona on 02-08-2024 Urobilinogen Ql (U) 1 mg/dl Normal [facility] Vital Signs Date Time Vital Sign Value Performing Clinician Alexus fishman 05-03-2025 23:30-0400 Body temperature 98.6 [degF] [facility] 05-03-2025 23:30-0400 Diastolic blood pressure 94 mm[Hg] [facility] 05-03-2025 23:30-0400 Heart rate 64 /min [facility] 05-03-2025 23:30-0400 Respiratory rate 20 /min [facility] 05-03-2025 23:30-0400 SaO2% (BldA) [Mass fraction] 95 % [facility] 05-03-2025 23:30-0400 Systolic blood pressure 162 mm[Hg] [facility] 05-03-2025 20:22-0400 Body height 175.26 cm [facility] 05-03-2025 20:22-0400 Body mass index (BMI) [Ratio] 27.4 kg/m2 [facility] 05-03-2025 20:22-0400 Body weight 84.36 kg [facility] 02-08-2024 15:48-0400 Body temperature 97.8 [degF] [facility] 02-08-2024 15:48-0400 Diastolic blood pressure 74 mm[Hg] [facility] 02-08-2024 15:48-0400 Heart rate 61 /min [facility] 02-08-2024 15:48-0400 Respiratory rate 16 /min [facility] 02-08-2024 15:48-0400 SaO2% (BldA) [Mass fraction] 97 % [facility] 02-08-2024 15:48-0400 Systolic blood pressure 152 mm[Hg] [facility] 02-08-2024 13:16-0400 Body height 175.26 cm [facility] 02-08-2024 13:16-0400 Body mass index (BMI) [Ratio] 26.2 kg/m2 [facility] 02-08-2024 13:16-0400 Body weight 80.46 kg [facility] 11-19-2022 13:51-0500 SaO2% (BldA) [Mass fraction] 95 % [facility] 11-19-2022 13:37-0500 Body height 175.26 cm [facility] 11-19-2022 13:37-0500 Body mass index (BMI) [Ratio] 27.4 kg/m2 [facility] 11-19-2022 13:37-0500 Body temperature 98 [degF] [facility] 11-19-2022 13:37-0500 Body weight 84.36 kg [facility] 11-19-2022 13:37-0500 Diastolic blood pressure 71 mm[Hg] [facility] 11-19-2022 13:37-0500 Heart rate 65 /min [facility] 11-19-2022 13:37-0500 Respiratory rate 14 /min [facility] 11-19-2022 13:37-0500 Systolic blood pressure 112 mm[Hg] [facility] Encounters Encounter Date Encounter Type Care Provider Facility Start: 05-03-2025 End: 05-03-2025 Emergency department patient visit [facility] Work Phone: Start: 02-08-2024 End: 02-08-2024 Emergency department patient visit [facility] Work Phone: Start: 11-19-2022 End: 11-19-2022 Emergency department patient visit [facility] Procedures Date Procedure Procedure Detail Performing Clinician Start: 05-03-2025 Plain chest X-ray [facility] Start: 05-03-2025 Estimated creatinine clearance [facility] Start: 02-08-2024 CT of abdomen and pe lvis without contrast Start: 11-19-2022 CT of chest without contrast Plan of Treatment Date Care Activity Detail Author Start: 05-03-2025 End: 05-03-2025 [facility] Start: 02-08-2024 [facility] Start: 11-19-2022 Incentive spirometry [facility] Start: 11-19-2022 [facility] Patient Education [facility] Work Phone: Patient referral [facility] Work Phone: Payers Date Payer Category Payer Medicare [id number] 2025 Self-pay [id number] Medicare [id number] Unknown [id number] Unknown [id number] Unknown [id number] Social History Date Type Detail Facility Start: 11-19-2022 End: 02-08-2024 Tobacco smoking status ALIS Unknown if ever smoked [facility] Start: 1950 Sex Assigned At Male [facility] Start: 05-03-2025 Tobacco smoking stat us NHIS Smokes tobacco daily (finding) [facility] Mental Status Date Assessment Result Facility 05-03-2025 Cognitive function Voice/Name [facility] Work Phone: Discharge summary 05-03-2025 Note Date & Type Note Facility 05-03-2025 Discharge summary [facility] Radiology Diagnostic study note 05-03-2025 Note Date & Type Note Facility 05-03-2025 Radiology Diagnostic study note [facility] Imaging Services [address], [place] [address] Chest 1 View (Portable) MR#: [id number] Acct: [id number] Name: BOBBY BEASLEY Rep #: [id number] : 1950 M 74 From: Solange Zimmerman MD PCP: [facility] Status: REG ER Study:Chest 1 View (Portable) Date of Exam: 05/03/25 Exam# [id number] Ordering Dr: Gigi Leal MD PROCEDURE: CHEST 1 VIEW (PORTABLE) 05/03/2025 REASON FOR EXAM: CHEST PAIN TECHNIQUE: Frontal view of the chest. COMPARISON: 11/21/2022 FINDINGS: Scattered calcified granulomas. Diffuse reticular opacities may reflect atypical pneumonia, mild pulmonary edema, and/or underlying chronic lung disease. Right lower lobe opacity is not excluded. No pleural effusion or pneumothorax. Cardiac silhouette is unchanged. Calcified aortic arch. RAD/Chest 1 View (Portable) IMPRESSION: Diffuse reticular opacities may reflect atypical pneumonia, mild pulmonary edema, and/or underlying chronic lung disease. Right lower lobe opacity is not excluded. Reading Location: [facility] CC: Dr. Gigi Leal MD; [facility] ~ City Controller: Signed [facility] Discharge summary 05-03-2025 Note Date & Type Note Facility 05-03-2025 Discharge summary Note Date/Time May 03, 2025 11:31pm [facility] Medical Records Department [address] [place] [address] Emergency Department Summary 05/03/25 MR#: [id number] Acct: [id number] Name: BOBBY BEASLEY Rep #:[id number] : 1950 74 From: Gigi Leal MD PCP: [facility] Status:REG ER Location: ED HPI History of Present Illness Chief Complaint: Chest Pain Narrative Narrative: 74-year-old male past medical history of hypertension and coronary artery disease had stenting of his coronary arteries in 2003 presents with chest pain and tightness that he experienced approximately 2 hours ago. It was around 7 PMwhen he had just eaten dinner and was sitting trying to rest. He felt chest tightness for at least an hour. He called the side and around 8:20 PM, who brought him to the emergency department. He states he may have been slightly nauseated but no vomiting, no shortness of breath but he was mildly diaphoretic. He continues to smoke cigarettes, approximately a pack a day. He denies any exacerbating or alleviating factors. No leg swelling. He is currently pain-free. [facility] Medical History Myocardial infarct Hypertension Home Medications ?Medication ?Instructions ?Recorded ?Last Taken ?Type aspirin 325 mg tablet 325 mg PO DAILY@0800 3 Unknown History lisinopril 20 mg tablet 20 mg PO DAILY 09/30/13 Unkn own History metoprolol tartrate 25 mg tablet 37.5 mg PO BID Unknown History multivitamin with folic acid 400 1 tab PO DAILY Unknown History mcg tablet (Thera) pravastatin 40 mg tablet 80 mg PO DAILY 09/30/13 Unkn own History azithromycin 250 mg tablet See Rx Instructions PO .COM PLEX #6 05/03/25 Unknown Rx tabs Allergy/AdvReac Type Severity Reaction Status Date / Time No Known Allergies Allergy Verified 05/03/25 20:23 Surgical History History of coronary artery stent placement Social History Smoking Status: Current every day smoker tobacco type: cigarettes ROS ROS ED ROS Narrative Review of systems positive for chest tightness and diaphoresis. Perhaps slight nausea but no vomiting, no shortness of breath. No fevers or chills. Chronic cough in the mornings. No leg swelling. No exacerbating or alleviating factors. Currently pain-free. EXAM Physical Exam Narrative Exam Narrative: Afebrile. Vital signs noted. Nontoxic-appearing. Cardiovascular examination reveals regular rate and rhythm. Lungs are clear to auscultation bilaterally with rare expiratory wheeze, moving a good amount of air. Abdomen soft and nontender with positive bowel sounds, no guarding or rebound. Neurological examination nonfocal, nonlateralizing. No pedal edema bilaterally. Const Vital Signs: 05/03/25 20:21 05/03/25 20:22 05/03/25 20:47 Temperature 98.6 F Temperature Source Oral Pulse Rate 70 Respiratory Rate 18 Respiratory Effort Short of Breath Respiratory Pattern Blood Pressure 115/83 H Blood Pressure Mean 93 Pulse Ox 100 93 Oxygen Delivery Method Room Air 05/03/25 21:21 05/03/25 22:00 05/03/25 23:00 Temperature Temperature Source Pulse Rate 71 66 64 Respiratory Rate 22 H 24 H 17 Respiratory Effort Respiratory Pattern Blood Pressure 162/88 H 154/90 H 162/94 H Blood Pressure Mean 112 111 116 Pulse Ox 93 93 95 Oxygen Delivery Method Room Air Room Air Room Air 05/03/25 23:02 Temperature Temperature Source Pulse Rate 64 Respiratory Rate 20 H Respiratory Effort Respiratory Pattern Normal Blood Pressure Blood Pressure Mean Pulse Ox Oxygen Delivery Method MDM MDM MDM Narrative Medical decision making narrative: The differential diagnosis includes but not limited to ACS versus COPD exacerbation versus pneumonia versus pneumothorax. I have low suspicion for pulmonary embolism because history and physical does not support this. EKG obtained interpreted by myself independently as normal sinus rhythm at 66 bpm with premature supraventricular complexes. There is a right bundle branch blockpresent. No prior EKG with which to compare. I reviewed his laboratory work and he has normal white count of 8.6 with hemoglobin normal at 15.1, hematocrit 44.4, platelet count 194. BMP remarkable for creatinine of 1.32. Glucose 111. Initial high-sensitivity troponin 12. Chest x-ray interpreted by myself shows diffuse reticular opacities which could be atypical pneumonia versus interstitial edema. I added a BNP and its normal at 272. I do think he is in heart failure. I reviewed the radiology report which confirms my independent interpretation. I do feel in treating an atypical pneumonia that he should be given a DuoNeb aerosolized treatment. He states he has multiple inhalers at home. Smoking cessation was discussed. I will write him a prescription for azithromycin to take over the next 5 days. As long as his repeat troponin shows a acceptable delta troponin I feel he can be discharged to follow-up and that his chest tightness may have been more of a COPD type exacerbation. Repeat troponin returns at 14 for an acceptable delta troponin of 2. At this point in time, he remains pain-free. He will follow-up with his primary care provider at the [place]. Return instructions to the emergency department were reviewed. Disposition is discharged home in stable condition. History & Record Review Discussion w/independent historian: Patient Additional record(s) reviewed:: Prior ED visit and Prior labs Lab Data Attestation: I reviewed the patient's lab results. Labs: Laboratory Results - last 24 hr 05/03/25 05/03/25 20:38 22:55 WBC 8.6 RBC 4.62 Hgb 15.1 Hct 44.4 MCV 96.1 H MCH 32.7 H MCHC 34.0 RDW Std Deviation 49.6 H RDW Coeff of [place] 14.1 Plt Count 194 MPV 10.7 Immature Gran % (Auto) 0.400 Neut % (Auto) 52.1 Lymph % (Auto) 32.9 [place] % (Auto) 11.4 H Eos % (Auto) 2.7 Baso % (Auto) 0.5 Absolute Neuts (auto) 4.5 Absolute Lymphs (auto) 2.82 Nucleated RBC % 0 Sodium 140 Potassium 4.1 Chloride 104 Carbon Dioxide 24.2 Anion Gap 12 BUN 19 Creatinine 1.32 H Estim Creat Clear Calc 50.59 Est GFR (MDRD) Non-Af 57 L BUN/Creatinine Ratio 14.1 Glucose 111 H Calcium 9.1 Troponin T High Sens 12 Troponin T Hi Sens 2 Hr 14 NT pro BNP II 272 Radiography Diagnostic Testing: Clinical Impression(s) from Imaging Studies Chest X-Ray 05/03/25 21:10 IMPRESSION: Diffuse reticular opacities may reflect atypical pneumonia, mild pulmonary edema, and/or underlying chronic lung disease. Right lower lobe opacity is not excluded. Reading Location: [facility] Discharge Plan Triage Chief Complaint: Chest Pain ED Provider: Gigi Leal Dx/Rx/DC Orders Clinical Impression: Chest tightness, Atypical pneumonia, Smoker Instructions: Planning to Quit Smoking, ED Chest Pain, Uncertain Cause, ED Pneumonia (Adult) Prescriptions: New azithromycin 250 mg tablet See Rx Instructions .ROUTE .COMPLEX Qty: 6 0RF Rx Instructions: For 250 mg dose pack: take 500 mg today (day 1), then 250 mg for 4 days (days2-5) No Action aspirin 325 MG tablet 325 mg PO DAILY@0800 pravastatin 40 MG tablet 80 mg PO DAILY lisinopril 20 MG tablet 20 mg PO DAILY metoprolol tartrate 25 MG tablet 37.5 mg PO BID multivitamin with folic acid [Thera] 1 TABLET tablet 1 tab PO DAILY Primary Care Provider: [facility] Referrals: Hospital,[facility] [Primary Care Provider] - 3-5 Days if not improving Activity Restrictions/Additional Instructions: Stop smoking. Use an albuterol inhaler or nebulizer treatment every 4-6 hours as needed for shortness of breath. Return with increased chest tightness, new or worsening symptoms. Antibiotics as directed. Follow-up with your primary care provider at the CT in 3 to 5 days if not improving. Print Language: Serbian Disposition Disposition: Home, Self Care What to do if you have Problems For any increased pain, shortness of breath, bleeding, nausea or vomiting, chestpain, or any unexpected problems, contact your Primary Care Provider. Call [facility] ([phone]) or report to the closest Emergency Room. Call 911 if necessary. 05/03/25 2331 <Electronically signed by Gigi Leal MD> Cosigner Signature (if applicable): CC: [facility] ~ Signed [facility] Work Phone: Hospital Discharge instructions 05-03-2025 Note Date & Type Note Facility 05-03-2025 Hospital Discharg e instructions Additional Instructions Stop smoking. Use an albuterol inhaler or nebulizer treatment every 4-6 hours as needed for shortness of breath. Return with increased chest tightness, new or worsening symptoms. Antibiotics as directed. Follow-up with your primary care provider at the CT in 3 to 5 days if not improving. [facility] Work Phone: Discharge summary 11-19-2022 Note Date & Type Note Facility 11-19-2022 Discharge summary Note Date/Time November 19, 2022 2:05pm [facility] Medical Records Department [address] [place] [address] Emergency Department Summary 11/19/22 MR#: [id number] Acct: [id number] Name: BOBBY BEASLEY Rep #:[id number] : 1950 72 From: Dangelo Alonzo PCP: [facility] Status:REG ER Location: ED HPI HPI - Fall History of Present Illness Chief Complaint: Fall Narrative Narrative: 72-year-old male here for back pain after fall. Patient states symptoms are constant, severe worse with movement, worse palpation. There are no radiating components. Patient denies any saddle anesthesia, urinary tension, bowel or bladder incontinence, lower extremity weakness, fever or IV drug use, no recent spinal manipulation or surgery, no recent urinary catheterization. PFSH PFS Home Medications aspirin 325 mg tablet 325 mg PO DAILY@0800 09/30/13 [History Last Taken Unknown] lisinopril 20 mg tablet 20 mg PO DAILY 09/30/13 [History Last Taken Unknown] metoprolol tartrate 25 mg tablet 37.5 mg PO BID 09/30/13 [History Last Taken Unknown] multivitamin with folic acid 400 mcg tablet (Thera) 1 tab PO DAILY 09/30/13 [History Last Taken Unknown] pravastatin 40 mg tablet 80 mg PO DAILY 09/30/13 [History Last Taken Unknown] Allergy/AdvReac Type Severity Reaction Status Date / Time No Known Allergies Allergy Verified 11/19/22 13:37 Social History Smoking Status: Current every day smoker tobacco type: cigarettes ROS ROS ED ROS Narrative Constitutional: Denies fever HEENT: Denies sore throat Neck: Denies neck pain Cardiovascular: Denies chest pain, syncope Respiratory: Denies shortness of breath GI: Denies nausea vomiting or abdominal pain : Denies changes in urinary habits Musculoskeletal: Endorses back pain Neurologic: Denies numbness weakness or loss of sensation Skin denies rash EXAM Physical Exam Narrative Exam Narrative: Nursing triage notes reviewed, Vital signs reviewed Constitutional: please see mdm HENT: MMM, no evidence of head trauma, no cephalhematoma, intraoral lesions, hemotympanum Eyes: Pupils equal round and reactive to light, Extraocular muscles intact Neck: No stridor, no JVD, full neck ROM, no step-offs deformities or TTP over the cervical spine Lungs: Clear to auscultation, No wheezing or rales. No increased work of breathing, no conversational dyspnea, no accessory muscle use, no nasal flaring. No respiratory distress noted Heart: Regular rate and rhythm, No murmurs, No rubs and No gallops, 2+ distal pulses (radial, femoral, posterior tibial) in all extremities Abdomen: Soft, there is no tenderness, rigidity, rebound or guarding, no obviousperitoneal signs, no palpable pulsatile abdominal masses, no auscultated abdominal bruit. No Herb sign, no Kiser Talley sign : No CVAT Back: TTP over right inferior rib margin, crepitus noted. no midline TTP, step-offs or deformities of thoracic or lumbar spine Extremities: No edema Neuro: Intact sensation L1-S1 dermatomal distributions. Intact 5/5 strength in hip flexion (T12-L3). Knee extension (L2-L4). Ankle dorsiflexion (L4-L5). Ankle plantar flexion (S1). Great toe extension (L5). 2+ patellar and AchillesDTRs. Skin: No rash or lesions noted Const Vital Signs: 11/19/22 13:37 11/19/22 13:51 Temperature 98 F Temperature Source Temporal Pulse Rate 65 Respiratory Rate 14 Respiratory Effort Normal Non-Labored Respiratory Depth Normal Respiratory Pattern Normal Blood Pressure 112/71 Blood Pressure Mean 84 Pulse Ox 95 95 Oxygen Delivery Method Room Air Room Air [facility] Narrative Medical decision making narrative: Chief Complaint: Back pain after fall External records reviewed: No recent advanced imaging of the axial skeleton I considered: Fractures or dislocation of the spine, musculoskeletal injury of the spine. Factors affecting care: History of hypertension, hyperlipidemia Social determinants of health: Daily tobacco user History obtained from others: None Shared decision making: I will have a discussion with the patient and or visitors regarding risk/benefits of further testing or admission. They will be made aware of of the risk/benefits inherent in this decision they will be given the opportunity to voice understanding. Consults: Radiography Diagnostic Testing: Clinical Impression(s) from Imaging Studies Chest CT 11/19/22 14:32 IMPRESSION: Emphysematous changes and pulmonary scarring. No acute abnormality is seen. Electronically Signed: Twin Lucreo MD at 15:15 EST , Discharge Plan Triage Chief Complaint: Fall ED Provider: Dangelo Hendrickson Dx/Rx/DC Orders Prescriptions: No Action aspirin 325 MG tablet 325 mg PO DAILY@0800 pravastatin 40 MG tablet 80 mg PO DAILY lisinopril 20 MG tablet 20 mg PO DAILY metoprolol tartrate 25 MG tablet 37.5 mg PO BID multivitamin with folic acid [Thera] 1 TABLET tablet 1 tab PO DAILY [facility] Provider[facility] Referrals: [facility] [Primary Care Provider] - What to do if you have Problems For any increased pain, shortness of breath, bleeding, nausea or vomiting, chestpain, or any unexpected problems, contact your Primary Care Provider. Call [facility] ([phone]) or report to the closest Emergency Room. Call 911 if necessary. 11/19/22 1528 <Electronically signed by Dangelo Hendrickson DO> Cosigner Signature (if applicable): CC: [facility] ~ Signed [facility] Work Phone: Evaluation note Note Date & Type Note Facility Evaluation note No assessment information availa ble [facility] Work Phone: Hospital Discharge instructions Note Date & Type Note Facility Hospital Discharge instructions Additional Instructions Please take Tylenol, ibuprofen every 6 hours as needed for pain control. Please use your provided incentive spirometer at least once an hour to improve lung aeration and decrease risk of pneumonia. Please return if your symptoms change or worsen in any way [facility] Work Phone: Hospital Discharge instructions Note Date & Type Note Facility Hospital Discharge instructions Additional Instructions Today your tests and CAT scan look normal with no clear cause found of your pain. I recommend alternating Tylenol and Motrin and following up with your primary care doctor. Return if symptoms worsen or significantly change. [facility] Work Phone: Reason for referral (narrative) Note Date & Type Note Facility Reason for referral (narrative) No reason for referral information available [facility] Work Phone: Chief Complaint and Reason for Visit Chief Complaint FALL Chief Complaint flank pain Chief Complaint Admit Date CHEST PAIN May 03, 2025 8:21 pm Advance Directives No Advanced Directives Records Found Advance Directive Response Recorded Date/ Time Living Will No November 19 1:50pm Power of Tool Room Supervisor No November 19, 2022 1:50pm Advance Directive Response Recorded Date/ Time Living Will No February 08, 2024 1:26pm Power of Tool Room Supervisor No February 07 1:26pm Advance Directive Response Recorded Date/ Time Do you have a Healthcare Power of Tool Room Supervisor? No May 03, 2025 8:21pm Summary Purpose Family History No Family History Records Found Additional Source Comments Care Teams (unrecognized sec tion and content) Team Status: Active Member Role Status Dates [facility] Family Provider Active [facility] Primary Care Provider Active Team Status: Inactive Member Role Status Dates [facility] Primary Care Provider Active Dr. Dangelo Hendrickson , DO Emergency Provider Active Team Status: Inactive Member Role Status Dates [facility] Primary Care Provider Active Dr. Ronald Stoddard , DO Emergency Provider Active Team Status: Active Member Role/Relationship Status Dates [facility] Primary Care Provider Active Team Status: Inactive Member Role/Relationship Status Dates [facility] Primary Care Provider Active Start: May 03, 2025 End: May 03, 2025 Gigi Leal MD Emergency Provider Active Star t: May 03, 2025 End: May 03, 2025 Goals (unrecognized section and content) Goals may be documented in a n alternate sectionGoals may be documented in an alternate sectionGoals may be documented in an alternate section (unrecognized sect ion and content) No Status Records Found INFORMATION SOURCE (unrecogn ized section and content) DATE CREATED AUTHOR 05/11/2025 [facility] FOR RECORDS PERTAINING TO PATIENTS WHO ARE OR HAVE BEEN ENROLLED IN A CHEMICAL DEPENDENCY/SUBSTANCEABUSE PROGRAM, SOME INFORMATION MAY BE OMITTED. This clinical summary was aggregated from multiple sources. Caution should be exercised in using it in the provision of clinical care. This summary normalizes information from multiple sources, and as a consequence, information in this document may materially change the coding, format and clinical context of patient data. In addition, data may be omitted in some cases. CLINICAL DECISIONS SHOULD BE BASED ON THE PRIMARY CLINICAL RECORDS. [facility] [employer] [facility]. provides no warranty or guarantee of the accuracy or completeness of information in this document.
[2025-09-14] MEDS: Lidocaine 1% /Epi 1:100 (20ml) 20 ML Vial (12:42)
--- NOTE | 2025-09-14 12:52 | PCM.OPRPT ---
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, small cell lung cancer Post-Operative Diagnosis: Same Surgery/Procedure Performed: Placement of right IJ Port-A-Cath Use of ultrasound Use of fluoroscopy burglary investigator: No Type of Anesthesia: Local MAC RN Documented Start/Stop Times: Operation Date: 09/14/25 12:00 Case Time Into Pre-Op 09/14/25 10:31 Out of Pre-Op 09/14/25 12:08 Anesthesia Start 09/14/25 12:12 Into Room 09/14/25 12:12 Procedure Start 09/14/25 12:28 Procedure End 09/14/25 12:50 Anesthesia End 09/14/25 12:53 Out of Room 09/14/25 12:53 Into Recovery 09/14/25 12:56 Into Phase II Recovery 09/14/25 13:16 Out of Recovery 09/14/25 13:16 Procedure Start Time: 12:28 Procedure Stop Time: 12:50 Select all DRAINS/GRAFTS/IMPLANTS that apply: Implanted device Implanted device details: [employer] PowerPort isp M.R.I. 6Fr Lot [id number] ref [id number] Special Medications: Ancef 2 g IV x 1 Estimated Blood Loss: 5 cc Specimen collected: No Description of surgery: After informed consent was given, the patient was brought to the operating room and placed in the supine position. Appropriate time out protocol was followed. Patient was then given IV conscious sedation for anesthesia. The patient's right upper chest and neck were then prepped with a surgical skin preparation and sterile surgical drapes were placed. After proper landmarks were ascertained, the skin at the upper right chest area was then infiltrated with 1:1 mixture of 1% lidocaine with epinephrine and 0.5% marcaine. A needle trocar was then inserted into the right internal jugular vein with ultrasound guidance-multiple vessels were viewed with u/s and the right IJ was chosen-- and there was good aspiration of venous blood. A wire was then threaded into the needle trocar and this was visualized under fluoroscopy to ensure that the wire was in the superior vena cava. Once this was done, then the needle trocar was removed. A small skin lois was made with an 11 blade knife at the wire entrance site. The dilator with the introducer sheath attached was then placed over the wire into the right internal jugular vein via the Seldinger technique and this was visualized under fluoroscopy. The dilator and sheath were in proper position as visualized by fluoroscopy. A subcutaneous pocket was then created caudad to the catheter insertion site. A transverse skin incision was made after the skin and subcutaneous tissues were infiltrated with local anesthetic. Blunt dissection was then used to create a space large enough for placement of the subcutaneous port. The catheter was then tunneled into the subcutaneous pocket. The wire and dilator were then removed. The catheter was then threaded into the introducer sheath and was positioned with its tip at the junction of the superior vena cava and the right atrium as visualized under fluoroscopy. The excess catheter was transected. The catheter was then attached to the subcutaneous port using manufacturers guidelines. The catheter was flushed with a heparin saline mixture prior to placement. Hemostasis was carefully controlled with electrocautery. The port was sutured to the subcutaneous fascia using 2-0 Vicryl suture at two sites. The port was then placed in the subcutaneous pocket. The incision were reapproximated with interrupted subdermal 3-0 vicryl sutures. The skin was reapproximated with 3-0 nylon suture in a interrupted fashion. Steristrips were used for reinforcement of the skin closure at IJ insertion site and a sterile opsite dressings were applied. The patient tolerated the procedure well. Surgical Findings: See operative report Complications Complications: No
--- NOTE | 2025-09-14 12:54 | DCINST_ITS ---
Discharge Instructions Procedure Port-A-Cath Diet Discharge Diet: Light diet - advance as tolerated Activity May shower in (days): 5 (Keep port site clean and dry x5 days. Neck incision okay to get wet after 1 day. Okay to lower shower and upper sponge bath. OR okay to taper off port site with a Ziploc bag to shower) Lifting Restrictions: No lifting > 15 pounds for 3 days with the arm on the side of the port Dressing / Incision Call your doctor if your incision/area has: Continuous Slow Oozing, Sudden Increased Bleeding, Increased Pain/ Swelling, Increased Redness, Foul Smelling Discharge and Swelling at the incision site Call your doctor if you observe: Fever of 101 or Higher Change Dressing in: 2 days (2-3 days- port site; ok to remove neck opsite in 1 day) Follow Up Care Please Follow Up With: Ellie Marie MD When: In 10 days for permanent suture removal?call office for appointment Test Results: Test results from this visit will be discussed in further detail at your follow- up appointment, if applicable. Discharge Plan Admission Attending Provider: Ellie Marie Primary Care Provider: [facility],[place] Instructions Print Language: Maori Discharge Orders/Prescriptions Prescriptions: New tramadol 50 mg tablet 50 mg PO Q6H PRN (Reason: pain) Qty: 5 0RF Continued atorvastatin [Lipitor] 10 mg tablet 10 mg PO QDAY tamsulosin 0.4 mg capsule 0.4 mg PO QHS albuterol sulfate 90 mcg/actuation aerosol powdr breath activated 1 inh inhalation Q4-6H PRN (Reason: shortness of breath or wheezing) cptpizjmil-[id number]-ymrzhsshaa 160-9-4.8 mcg/actuation HFA aerosol inhaler 2 inh inhalation BID lisinopril 20 MG tablet 20 mg PO DAILY metoprolol tartrate 25 MG tablet 37.5 mg PO BID multivitamin with folic acid [Thera] 1 TABLET tablet 1 tab PO DAILY aspirin [Adult Aspirin Regimen] 81 mg tablet,delayed release (DR/EC) 81 mg PO DAILY diphenhydramine HCl [Allergy (diphenhydramine)] 25 mg capsule 25 mg PO Q8H PRN (Reason: allergies) Referrals / Follow Up: [facility],[place] [Primary Care Provider, None] Disposition Disposition (needs filled in before D/C Order can be placed): Home, Self Care
--- NOTE | 2025-09-14 13:00 | RAD_ITS ---
PROCEDURE: CHEST 1 VIEW (PORTABLE) 09/14/2025 REASON FOR EXAM: PORT TECHNIQUE: Frontal view of the chest. COMPARISON: Chest x-ray examinations of 11/21/2022 and of 05/03/2025. RAD/Chest 1 View (Portable) IMPRESSION: Interval placement of right subclavian central venous catheter with port, with tip projecting over the distal SVC. No pneumothorax is seen. No pleural effusion is evident. Chronic lung changes appear stable. The cardiomediastinal silhouette is unchanged, without evidence of cardiomegaly . Reading Location: [id number]
--- NOTE | 2025-09-14 13:01 | PCM.POST.ANE ---
Anesthesia: Postop Eval I Current Vital Signs Temperature: 98.5 F Pulse Rate: 58 Blood Pressure: 104/61 Respiratory Rate: 20 Pulse Ox: 94 Oxygen Delivery Method: Room Air Assessment Airway patent: Yes Spontaneous unlabored respirations: Yes Mental status: Awake and Calm nausea: No Vomiting: No Anesthesia Complication: No Fluid Hydration Crystalloid volume administer (ml): 500 Total IV fluid infused: 500 Progress Note Anesthesia document: Postop Eval 1 completed: Yes
--- NOTE | 2025-09-14 13:38 | POSTOPAN2_ITS ---
Anesthesia Postop Eval I Sum Postop Eval Completion status Anesthesia document: Postop Eval 1 completed: Yes Anesthesia Postop Eval I Summary Anesthesia Postop Eval I Summary: Anesthesia Postop Eval I: Assessment Summary Airway patent Yes 09/14/25 13:02 COMMERCIAL [email or web address] Spontaneous unlabored Yes 09/14/25 13:02 COMMERCIAL COLLECTIONS [email or web address] respirations Mental status Awake,Calm 09/14/25 13:02 COMMERCIAL [email or web address] nausea No 09/14/25 13:02 COMMERCIAL COLLECTIONS [email or web address] Vomiting No 09/14/25 13:02 COMMERCIAL [email or web address] Anesthesia Postop Eval I: Fluid Summary Crystalloid volume administer 500 09/14/25 13:02 COMMERCIAL [email or web address] (ml) Colloids volume administered ( ml) Blood Product volume administered (ml) Total IV fluid infused 500 09/14/25 13:02 COMMERCIAL [email or web address] Anesthesia Postop Eval I: Summary Notes Anesthesia Complication No 09/14/25 13:02 COMMERCIAL [email or web address] Anesthesia Complication Comment: Post-operative progress note Anesthesia: Postop Eval II Evaluation Mental status: Awake Pain Level: 0 nausea: No Vomiting: No Complications Anesthesia Complication: No
--- NOTE | 2025-09-14 13:38 | PCM.POSTANE2 ---
Anesthesia Postop Eval I Sum Postop Eval Completion status Anesthesia document: Postop Eval 1 completed: Yes Anesthesia Postop Eval I Summary Anesthesia Postop Eval I Summary: Anesthesia Postop Eval I: Assessment Summary Airway patent Yes 09/14/25 13:02 [email or web address] Spontaneous unlabored Yes 09/14/25 13:02 [email or web address] respirations Mental status Awake,Calm 09/14/25 13:02 [email or web address] nausea No 09/14/25 13:02 [email or web address] [email or web address] Vomiting No 09/14/25 13:02 [email or web address] [email or web address] Anesthesia Postop Eval I: Fluid Summary Crystalloid volume administer 500 09/14/25 13:02 [email or web address] [email or web address] (ml) Colloids volume administered ( ml) Blood Product volume administered (ml) Total IV fluid infused 500 09/14/25 13:02 [email or web address] [email or web address] Anesthesia Postop Eval I: Summary Notes Anesthesia Complication No 09/14/25 13:02 [email or web address] [email or web address] Anesthesia Complication Comment: Post-operative progress note Anesthesia: Postop Eval II Evaluation Mental status: Awake Pain Level: 0 nausea: No Vomiting: No Complications Anesthesia Complication: No
== END 2025-09-14 14:06 | disposition home or self-care (01) ==
LOC: SDC 10:27 → AC 10:28
PROVIDERS: Anesthesiology; Referring Provider Surgery; Visit Provider Surgery
PROC: (CPT 36561; principal; 2025-09-14 11:45)
DX: Z45.2 Encounter for adjustment and management of vascular access device (principal); C34.90 Malignant neoplasm of unspecified part of unspecified bronchus or lung; J44.9 Chronic obstructive pulmonary disease, unspecified; E78.00 Pure hypercholesterolemia, unspecified; I25.10 Atherosclerotic heart disease of native coronary artery without angina pectoris; I10 Essential (primary) hypertension; Z79.51 Long term (current) use of inhaled steroids; Z79.82 Long term (current) use of aspirin; Z79.899 Other long term (current) drug therapy; Z87.891 Personal history of nicotine dependence
CPT/HCPCS: 36561; 00532; 36415; 71045; 77001; 85049